=== PATIENT | male | born 1960 | race Caucasian/White ===

== ENCOUNTER 2019-04-18 10:15 | Outpatient (RCR) | payer OTHER, SELFPAY ==
--- NOTE | 2019-03-01 16:30 | PT.OIE ---
Current Diagnoses Unilateral primary osteoarthritis, right knee (03/01/19) Complex tear of medial meniscus, current injury, right knee, subsequent encounter (03/01/19) Visit Care Team Role Provider Type Robby Butt Attending Provider Non-Staff Specialty: Medical Address: [facility] [address], [place], [address] Email: Physical Therapy Initial Evaluation PT-OP-A Visit Information Start: 03/01/19 09:06 Freq: Status: Active Protocol: Document 03/01/19 14:09 NFW (Rec: 03/01/19 16:27 NFW [id number]) Out-Patient Physical Therapy Visit Information Visit Information Visit Type Initial Evaluation Visit Start Time 13:00 Visit Stop Time 13:45 Total Visit Minutes 45 Visit Number 1 Number of POLE SANDER OPERATOR Visits 0 Evaluation Information Evaluation Date 03/01/19 PT-OP-B Current Condition Start: 03/01/19 09:06 Freq: Status: Active Protocol: Document 03/01/19 14:09 NFW (Rec: 03/01/19 16:27 NFW [id number]) Current Condition History of Current Condition Onset Date June 2016 Current Complaints Pain med. jt line rt knee. Inability to walk right. Knee pops w/motion. History of Current Condition At time of injury patient working as a [employer]. Started noticing pain in right knee Jun 2016 but did not report or seek medical attention until November 2017. Over the past year his body weight has increased by 100 lbs; he was dx'd with CHF and hospitalized in ICU for 10 days in March 2018; dx'd w/ diabetes type II and COPD. Prior Treatments and Tests Arthoscopic medial menisectomy June 2018. Physical therapy post surgery in [facility]. Benefit of PT with improved strength right knee but pain persists. Seeing a interior design director for assist in weight control. Future Testing and Treatments Planned Recommendation by MD for trial Pool therapy. Treatment Goals Patient/Caregiver Goals Being able to walk normally without pain. Prior Functional Status Baseline Function- ADL's Modified Independent Baseline Function- Mobility Modified Independent Baseline Function- Work/School Worked fulltime as [employer]. Current Functional Impairments (Reported) Functional Limitations- Mobility/Gait Distance limited to one or two blocks. Pain noted throughout. Ambulates with moderate right medial list. Does not use any assistive devices. Difficulty in ascending and descending stairs. Functional Limitations- Work/School Currently unable to RTW due to limited walking/weight bearing tolerance. Personal Factors Other Personal Factors That May Effect Body weight has increased by Therapy/Recovery 100 lbs over the last year. PT-OP-C Subjective Start: 03/01/19 09:06 Freq: Status: Active Protocol: Document 03/01/19 14:09 NFW (Rec: 03/01/19 16:27 NFW [id number]) OP-PT Subjective Patient Comments Patient Comments Fairly constant pain medial joint line right knee, rated at a level of 6 on a maximal scale of 10. Knee pops with active movement with sharp twinge of pain. Would like to be able to walk normally. Patient Reported Progress Same Patient Questionnaires Lower Extremity Functional Scale LEFS Score 31 LEFS Impairment 20 to 39% Impaired (Score 48- 62) OP-PT Pain Assessment Pain Assessment Grid Paper Pain Assessment Grid Completed Yes Location Left Knee Intensity 6 Scale Used Numeric (1 - 10) Description Burning,Sharp Frequency Frequent Pain Aggravating Factors Changing Position,Activity, Exercise,Standing,Sitting, Walking,Stair Climbing,Bending Pain Alleviating Factors Changing Position,Rest Home Pain Medication Use Pain Medications Used Yes Pain Behaviors Pain Behaviors Facial Grimacing,Guarding PT-OP-F Manual Assessment Start: 03/01/19 09:06 Freq: Status: Active Protocol: Document 03/01/19 14:09 NFW (Rec: 03/01/19 16:27 NFW [id number]) Manual Assessments Joint Mobility Assessment Joint Mobility Assessment Mobility testing challenging medial structures painful. PT-OP-G Mobility & Gait Start: 03/01/19 09:06 Freq: Status: Active Protocol: Document 03/01/19 14:09 NFW (Rec: 03/01/19 16:27 NFW [id number]) OP Gait Assessment Gait Gait Assistance Required: Independent Assistive Devices Assistive Device None Gait Deviations General Gait Pattern Antalgic,Lateral Trunk Lean Factors Limiting Gait Function Factors Limiting Gait Function Abnormal Tonal Influences, Decreased Activity Tolerance, Decreased Strength,Pain,Poor Balance Comments Gait Comments Notable right medial list with weightbearing onto RLE. Has not used any assistive devices in the past. PT-OP-J Posture/Palpation/Skin Start: 03/01/19 09:06 Freq: Status: Active Protocol: Document 03/01/19 14:09 NFW (Rec: 03/01/19 16:27 NFW [id number]) Posture Evaluation Position Standing Evaluation View Anterior Weight Distribution Weight Shifted Left,Decreased Wt.Bear on (R) Hip Posture (R) Externally Rotated,(R) Abducted Ankle/Foot Posture (L) Pronated,(R) Calcaneal Eversion Foot Arch (R) Medium Arch,(L) Low Arch Palpation Assessment Location One Palpation Location Right knee, medial joint line Palpation Findings Tenderness Palpation Details No edema noted. Tenderness and pain along medial joint line right. Skin Assessment Other Assessments Skin Assessment Comments No discoloration noted right knee. PT-OP-K Range of Motion Start: 03/01/19 09:06 Freq: Status: Active Protocol: Document 03/01/19 14:09 NFW (Rec: 03/01/19 16:27 NFW [id number]) Knee Goniometric Range of Motion Knee Left Knee ROM WFL Yes Flexion Active (degrees) 125 Extension Active (degrees) 0 Right Patient Position Supine Flexion Active (degrees) 120 Extension Active (degrees) 0 PT-OP-L Special Tests Start: 03/01/19 09:06 Freq: Status: Active Protocol: Document 03/01/19 14:09 NFW (Rec: 03/01/19 16:27 NFW [id number]) Special Tests Knee Special Tests Anterior Draw Test Results Negative Luly Test Test Results Positive Comments Quite uncomfortable for patient. PT-OP-M Strength Start: 03/01/19 09:06 Freq: Status: Active Protocol: Document 03/01/19 14:09 NFW (Rec: 03/01/19 16:27 NFW [id number]) Knee Strength Knee Manual Muscle Testing Left Flexion (S2) 5 Normal Extension (L3) 5 Normal Right Reason Not Measured Behavior,Pain PT-OP-Q Treatments Start: 03/01/19 09:06 Freq: Status: Active Protocol: Document 03/01/19 14:09 NFW (Rec: 03/01/19 16:27 NFW [id number]) Therapeutic Exercises Supine Exercises 5 Supine Exercise Name Heels slides to full available ROM Side right Reps/Minutes 10 reps continuously Comments Emphasis on controlling of motion and the popping that occurs in his knee. 4 Supine Exercise Name Quad Sets Side right Reps/Minutes 10 - 10 sec holds 3 Supine Exercise Name TKE Side right Resistance none Equipment Used none Reps/Minutes 10 - 10 sec holds 2 Supine Exercise Name SLR Side right Resistance No Equipment Used None Reps/Minutes 10 - 10 sec holds 1 Supine Exercise Name Clam Side right Resistance none Equipment Used none Comments Instructed from previous PT in [place], mainly rechecked this exercise Gait Training Gait Activity 1 Description Gait training to decrease right medial list. Device Used cane and walking stick Treatment Focus To decrease right medial list, equalize step lengths Comments Initially patient resisted the use of walking aid. Noticed that he was able to walk more evenly with use of an aide. Preferred walking stick over cane. Plans to buy walking sticks. PT-OP-T Assessment and Plan Start: 03/01/19 09:06 Freq: Status: Active Protocol: Document 03/01/19 14:09 NFW (Rec: 03/01/19 16:27 NFW [id number]) Physical Therapy Assessment Rehab Potential Rehabilitation Potential Good Evaluation Complexity Number of Personal Factors/Comorbidities 1-2 Number of Body Systems Impaired 1-2 Clinical Presentation at Evaluation Stable Impairments Impairments Activity Tolerance,Balance, Coordination,Functional Activities,Functional Mobility ,Gait,Pain,ROM,Strength Other Impairments Patient has noticed with increase of physical activity that he becomes readily SOB. Also making attempts in decreasing body weight. Goals Three Impairment Walking tolerance Short Term Goal (STG) Increase ability to walk on the level with or without walking aid up to three blocks . STG Duration 04/01/19 Mcc Goal (LTG) Increase walking tolerance on the level to half mile with or without walking aids. LTG Duration 06/01/19 Two Impairment Antalgic Gait Short Term Goal (STG) Consistent use of walking aide to decrease right medial list . STG Duration 04/01/19 Mcc Goal (LTG) Ambulation on the level without medial list and without use of walking aid. LTG Duration 06/01/19 One Impairment Pain Short Term Goal (STG) Decrease intensity of pain to 4/10 from current 10/23. STG Duration 04/01/19 Mcc Goal (LTG) Decrease intensity of pain to 2/10 LTG Duration 05/01/10 Assessment Summary Assessment Patient presents with continual pain right knee after surgical intervention and OPPT. Has secondary LOM by a few degrees right knee. This has affected his ability to return to work or to perform light activities around the home. The pain has also affected his sleep. He has developed an antalgic gait pattern, muscle imbalances between right and left LE. Physical Therapy Plan Frequency and Duration Frequency of Treatment 2x/Week Duration of Treatment 3 months Plan of Care Start Date 03/01/19 Plan of Care End Date 06/01/19 Therapeutic Interventions Therapeutic Interventions Aquatic Therapy,Balance Training,Gait Training,Home Exercise Program,Therapeutic Exercises Next Visit Focus/Plan Next Note Type Treatment Note Next Visit Plan Aquatic Therapy
--- NOTE | 2019-03-14 16:34 | PT.OTN ---
Current Diagnoses Unilateral primary osteoarthritis, right knee (03/14/19) Complex tear of medial meniscus, current injury, right knee, subsequent encounter (03/14/19) Physical Therapy Treatment Note PT-OP-A Visit Information Start: 03/01/19 09:06 Freq: Status: Active Protocol: Document 03/14/19 10:15 LJ (Rec: 03/14/19 16:34 LJ [id number]) Out-Patient Physical Therapy Visit Information Visit Information Visit Type Aquatic Treatment Note Visit Start Time 10:15 Visit Stop Time 11:00 Total Visit Minutes 45 Visit Number 2 Number of INSTRUCTIONAL TECHNOLOGY SPECIALIST Visits 1 Evaluation Information Evaluation Date 03/01/19 PT-OP-B Current Condition Start: 03/01/19 09:06 Freq: Status: Active Protocol: Document 03/01/19 14:09 NFW (Rec: 03/01/19 16:27 NFW [id number]) Current Condition History of Current Condition Onset Date June 2016 Current Complaints Pain med. jt line rt knee. Inability to walk right. Knee pops w/motion. History of Current Condition At time of injury patient working as a [employer]. Started noticing pain in right knee Jun 2016 but did not report or seek medical attention until November 2017. Over the past year his body weight has increased by 100 lbs; he was dx'd with CHF and hospitalized in ICU for 10 days in March 2018; dx'd w/ diabetes type II and COPD. Prior Treatments and Tests Arthoscopic medial menisectomy June 2018. Physical therapy post surgery in [facility]. Benefit of PT with improved strength right knee but pain persists. Seeing a lead tinner for assist in weight control. Future Testing and Treatments Planned Recommendation by for trial Pool therapy. Treatment Goals Patient/Caregiver Goals Being able to walk normally without pain. Prior Functional Status Baseline Function- ADL's Modified Independent Baseline Function- Mobility Modified Independent Baseline Function- Work/School Worked fulltime as [employer]. Current Functional Impairments (Reported) Functional Limitations- Mobility/Gait Distance limited to one or two blocks. Pain noted throughout. Ambulates with moderate right medial list. Does not use any assistive devices. Difficulty in ascending and descending stairs. Functional Limitations- Work/School Currently unable to RTW due to limited walking/weight bearing tolerance. Personal Factors Other Personal Factors That May Effect Body weight has increased by Therapy/Recovery 100 lbs over the last year. PT-OP-C Subjective Start: 03/01/19 09:06 Freq: Status: Active Protocol: Document 03/14/19 10:15 LJ (Rec: 03/14/19 16:34 LJ [id number]) OP-PT Subjective Patient Comments Patient Comments Pt reports he is excited about aquatic therapy and is going to work hard to strengthen so that he can exercise on land and lose weight to hopefully return to work. Patient Questionnaires Lower Extremity Functional Scale LEFS Score 31 LEFS Impairment 20 to 39% Impaired (Score 48- 62) OP-PT Pain Assessment Pain Assessment Grid Paper Pain Assessment Grid Completed Yes Location Left Knee Intensity 6 Scale Used Numeric (1 - 10) Description Burning,Sharp Frequency Frequent Pain Aggravating Factors Changing Position,Activity, Exercise,Standing,Sitting, Walking,Stair Climbing,Bending Pain Alleviating Factors Changing Position,Rest Home Pain Medication Use Pain Medications Used Yes Pain Behaviors Pain Behaviors Facial Grimacing,Guarding PT-OP-F Manual Assessment Start: 03/01/19 09:06 Freq: Status: Active Protocol: Document 03/01/19 14:09 NFW (Rec: 03/01/19 16:27 NFW [id number]) Manual Assessments Joint Mobility Assessment Joint Mobility Assessment Mobility testing challenging medial structures painful. PT-OP-G Mobility & Gait Start: 03/01/19 09:06 Freq: Status: Active Protocol: Document 03/01/19 14:09 NFW (Rec: 03/01/19 16:27 NFW [id number]) OP Gait Assessment Gait Gait Assistance Required: Independent Assistive Devices Assistive Device None Gait Deviations General Gait Pattern Antalgic,Lateral Trunk Lean Factors Limiting Gait Function Factors Limiting Gait Function Abnormal Tonal Influences, Decreased Activity Tolerance, Decreased Strength,Pain,Poor Balance Comments Gait Comments Notable right medial list with weightbearing onto RLE. Has not used any assistive devices in the past. PT-OP-J Posture/Palpation/Skin Start: 03/01/19 09:06 Freq: Status: Active Protocol: Document 03/01/19 14:09 NFW (Rec: 03/01/19 16:27 NFW [id number]) Posture Evaluation Position Standing Evaluation View Anterior Weight Distribution Weight Shifted Left,Decreased Wt.Bear on (R) Hip Posture (R) Externally Rotated,(R) Abducted Ankle/Foot Posture (L) Pronated,(R) Calcaneal Eversion Foot Arch (R) Medium Arch,(L) Low Arch Palpation Assessment Location One Palpation Location Right knee, medial joint line Palpation Findings Tenderness Palpation Details No edema noted. Tenderness and pain along medial joint line right. Skin Assessment Other Assessments Skin Assessment Comments No discoloration noted right knee. PT-OP-K Range of Motion Start: 03/01/19 09:06 Freq: Status: Active Protocol: Document 03/01/19 14:09 NFW (Rec: 03/01/19 16:27 NFW [id number]) Knee Goniometric Range of Motion Knee Left Knee ROM WFL Yes Flexion Active (degrees) 125 Extension Active (degrees) 0 Right Patient Position Supine Flexion Active (degrees) 120 Extension Active (degrees) 0 PT-OP-L Special Tests Start: 03/01/19 09:06 Freq: Status: Active Protocol: Document 03/01/19 14:09 NFW (Rec: 03/01/19 16:27 NFW [id number]) Special Tests Knee Special Tests Anterior Draw Test Results Negative Luly Test Test Results Positive Comments Quite uncomfortable for patient. PT-OP-M Strength Start: 03/01/19 09:06 Freq: Status: Active Protocol: Document 03/01/19 14:09 NFW (Rec: 03/01/19 16:27 NFW [id number]) Knee Strength Knee Manual Muscle Testing Left Flexion (S2) 5 Normal Extension (L3) 5 Normal Right Reason Not Measured Behavior,Pain PT-OP-Q Treatments Start: 03/01/19 09:06 Freq: Status: Active Protocol: Document 03/01/19 14:09 NFW (Rec: 03/01/19 16:27 NFW [id number]) Therapeutic Exercises Supine Exercises 5 Supine Exercise Name Heels slides to full available ROM Side right Reps/Minutes 10 reps continuously Comments Emphasis on controlling of motion and the popping that occurs in his knee. 4 Supine Exercise Name Quad Sets Side right Reps/Minutes 10 - 10 sec holds 3 Supine Exercise Name TKE Side right Resistance none Equipment Used none Reps/Minutes 10 - 10 sec holds 2 Supine Exercise Name SLR Side right Resistance No Equipment Used None Reps/Minutes 10 - 10 sec holds 1 Supine Exercise Name Clam Side right Resistance none Equipment Used none Comments Instructed from previous PT in [place], mainly rechecked this exercise Gait Training Gait Activity 1 Description Gait training to decrease right medial list. Device Used cane and walking stick Treatment Focus To decrease right medial list, equalize step lengths Comments Initially patient resisted the use of walking aid. Noticed that he was able to walk more evenly with use of an aide. Preferred walking stick over cane. Plans to buy walking sticks. PT-OP-S Aquatic Treatment Start: 03/14/19 16:15 Freq: Status: Active Protocol: Document 03/14/19 10:15 FANNY (Rec: 03/14/19 16:34 [id number]) Aquatics Treatment Pool Entry/Exit Pool Entry/Exit Method Lift Assistance Standby Assistance,Verbal Cues Water Walking Marching Water Level Chest Level Level of Assistance Verbal Cues Touchet March Water Level Chest Level Level of Assistance Verbal Cues Sideways Water Level Chest Level Level of Assistance Verbal Cues Backwards Water Level Chest Level Level of Assistance Verbal Cues Forwards Water Level Chest Level Level of Assistance Verbal Cues Lower Extremity Exercises heel/toe raises Body Position Standing Water Level Chest Level Reps/Duration 2x10 ea bilat Sit kicks Body Position Sitting Water Level Neck Level Reps/Duration 2x10 bilat Comments braced against wall HS curls Body Position Standing Water Level Chest Level Reps/Duration 2x10 bilat Comments hh on wall; cues for postural alignment hip flex/ext, abd, add Body Position Standing Water Level Chest Level Reps/Duration 2x10 ea bilat Comments hh on wall; cues for postural alignment Lower Extremity Stretches gastroc/soleus Body Position Standing Water Level Waist Level Comments on step and bottom of pool piriformis Body Position Standing Water Level Chest Level Reps/Duration 2x45 bilat Comments both forms HS Body Position Standing Water Level Chest Level Equipment Large Noodle Reps/Duration 2x45 bilat Comments braced at wall hip flexors Body Position Standing Reps/Duration 2x45 Comments at wall Balance SLS Water Level Chest Level Reps/Duration 2x30 sec bilat Comments occasional hh on wall [place] Activities [place] Activities Bicycle Equipment none Duration 8 min Comments pt had difficulty with postural stability PT-OP-T Assessment and Plan Start: 03/01/19 09:06 Freq: Status: Active Protocol: Document 03/14/19 10:15 FANNY (Rec: 03/14/19 16:34 [id number]) Physical Therapy Assessment Rehab Potential Rehabilitation Potential Good Evaluation Complexity Number of Personal Factors/Comorbidities 1-2 Number of Body Systems Impaired 1-2 Clinical Presentation at Evaluation Stable Impairments Impairments Activity Tolerance,Balance, Coordination,Functional Activities,Functional Mobility ,Gait,Pain,ROM,Strength Other Impairments Patient has noticed with increase of physical activity that he becomes readily SOB. Also making attempts in decreasing body weight. Goals Three Impairment Walking tolerance Short Term Goal (STG) Increase ability to walk on the level with or without walking aid up to three blocks . STG Duration 04/01/19 Aquaculture Director Goal (LTG) Increase walking tolerance on the level to half mile with or without walking aids. LTG Duration 06/01/19 Two Impairment Antalgic Gait Short Term Goal (STG) Consistent use of walking aide to decrease right medial list . STG Duration 04/01/19 Aquaculture Director Goal (LTG) Ambulation on the level without medial list and without use of walking aid. LTG Duration 06/01/19 One Impairment Pain Short Term Goal (STG) Decrease intensity of pain to 4/10 from current 10/23. STG Duration 04/01/19 Longterm Goal (LTG) Decrease intensity of pain to 2/10 LTG Duration 05/01/10 Assessment Summary Assessment Pt tolerated exercises well and had mostly good posture and body mechanics with cueing . He reported that there was no instability or popping of his knee but that it felt slightly less stable, but pain free in deep water. Pt had difficulty stabilizing in deep water with his legs being buoyant. Also became winded and SOB in deep water after 8 min. Physical Therapy Plan Frequency and Duration Frequency of Treatment 2x/Week Duration of Treatment 3 months Plan of Care Start Date 03/01/19 Plan of Care End Date 06/01/19 Therapeutic Interventions Therapeutic Interventions Aquatic Therapy,Balance Training,Gait Training,Home Exercise Program,Therapeutic Exercises Next Visit Focus/Plan Next Note Type Treatment Note Next Visit Plan Treat per POC focusing on strengthening LEs and core muscles to improve knee stability and ability to walk without medial list and increase distance. Add weights to LEs in deep water.
--- NOTE | 2019-03-19 11:00 | PT.OTN ---
Current Diagnoses Unilateral primary osteoarthritis, right knee (03/14/19) Complex tear of medial meniscus, current injury, right knee, subsequent encounter (03/14/19) Physical Therapy Treatment Note PT-OP-A Visit Information Start: 03/01/19 09:06 Freq: Status: Active Protocol: Document 03/19/19 10:15 CLB (Rec: 03/19/19 14:20 CLB [id number]) Out-Patient Physical Therapy Visit Information Visit Information Visit Type Aquatic Treatment Note Visit Start Time 10:15 Visit Stop Time 11:00 Total Visit Minutes 45 Visit Number 3 Number of CLEARANCE CUTTER Visits 2 PT-OP-B Current Condition Start: 03/01/19 09:06 Freq: Status: Active Protocol: Document 03/01/19 14:09 NFW (Rec: 03/01/19 16:27 NFW [id number]) Current Condition History of Current Condition Onset Date June 2016 Current Complaints Pain med. jt line rt knee. Inability to walk right. Knee pops w/motion. History of Current Condition At time of injury patient working as a [employer]. Started noticing pain in right knee Jun 2016 but did not report or seek medical attention until November 2017. Over the past year his body weight has increased by 100 lbs; he was dx'd with CHF and hospitalized in ICU for 10 days in March 2018; dx'd w/ diabetes type II and COPD. Prior Treatments and Tests Arthoscopic medial menisectomy June 2018. [facility]. Benefit of PT with improved strength right knee but pain persists. Seeing a optical mechanic apprentice for assist in weight control. Future Testing and Treatments Planned Recommendation by MD for trial Pool therapy. Treatment Goals Patient/Caregiver Goals Being able to walk normally without pain. Prior Functional Status Baseline Function- ADL's Modified Independent Baseline Function- Mobility Modified Independent Baseline Function- Work/School Worked fulltime as [employer]. Current Functional Impairments (Reported) Functional Limitations- Mobility/Gait Distance limited to one or two blocks. Pain noted throughout. Ambulates with moderate right medial list. Does not use any assistive devices. Difficulty in ascending and descending stairs. Functional Limitations- Work/School Currently unable to RTW due to limited walking/weight bearing tolerance. Personal Factors Other Personal Factors That May Effect Body weight has increased by Therapy/Recovery 100 lbs over the last year. PT-OP-C Subjective Start: 03/01/19 09:06 Freq: Status: Active Protocol: Document 03/19/19 10:15 CLB (Rec: 03/19/19 14:20 CLB [id number]) OP-PT Subjective Patient Comments Patient Comments Pt reports feeling like he got a good workout in pool and he can do more without pain. PT-OP-F Manual Assessment Start: 03/01/19 09:06 Freq: Status: Active Protocol: Document 03/01/19 14:09 NFW (Rec: 03/01/19 16:27 NFW [id number]) Manual Assessments Joint Mobility Assessment Joint Mobility Assessment Mobility testing challenging medial structures painful. PT-OP-G Mobility & Gait Start: 03/01/19 09:06 Freq: Status: Active Protocol: Document 03/01/19 14:09 NFW (Rec: 03/01/19 16:27 NFW [id number]) OP Gait Assessment Gait Gait Assistance Required: Independent Assistive Devices Assistive Device None Gait Deviations General Gait Pattern Antalgic,Lateral Trunk Lean Factors Limiting Gait Function Factors Limiting Gait Function Abnormal Tonal Influences, Decreased Activity Tolerance, Decreased Strength,Pain,Poor Balance Comments Gait Comments Notable right medial list with weightbearing onto RLE. Has not used any assistive devices in the past. PT-OP-J Posture/Palpation/Skin Start: 03/01/19 09:06 Freq: Status: Active Protocol: Document 03/01/19 14:09 NFW (Rec: 03/01/19 16:27 NFW [id number]) Posture Evaluation Position Standing Evaluation View Anterior Weight Distribution Weight Shifted Left,Decreased Wt.Bear on (R) Hip Posture (R) Externally Rotated,(R) Abducted Ankle/Foot Posture (L) Pronated,(R) Calcaneal Eversion Foot Arch (R) Medium Arch,(L) Low Arch Palpation Assessment Location One Palpation Location Right knee, medial joint line Palpation Findings Tenderness Palpation Details No edema noted. Tenderness and pain along medial joint line right. Skin Assessment Other Assessments Skin Assessment Comments No discoloration noted right knee. PT-OP-K Range of Motion Start: 03/01/19 09:06 Freq: Status: Active Protocol: Document 03/01/19 14:09 NFW (Rec: 03/01/19 16:27 NFW [id number]) Knee Goniometric Range of Motion Knee Left Knee ROM WFL Yes Flexion Active (degrees) 125 Extension Active (degrees) 0 Right Patient Position Supine Flexion Active (degrees) 120 Extension Active (degrees) 0 PT-OP-L Special Tests Start: 03/01/19 09:06 Freq: Status: Active Protocol: Document 03/01/19 14:09 NFW (Rec: 03/01/19 16:27 NFW [id number]) Special Tests Knee Special Tests Anterior Draw Test Results Negative Luly Test Test Results Positive Comments Quite uncomfortable for patient. PT-OP-M Strength Start: 03/01/19 09:06 Freq: Status: Active Protocol: Document 03/01/19 14:09 NFW (Rec: 03/01/19 16:27 NFW [id number]) Knee Strength Knee Manual Muscle Testing Left Flexion (S2) 5 Normal Extension (L3) 5 Normal Right Reason Not Measured Behavior,Pain PT-OP-Q Treatments Start: 03/01/19 09:06 Freq: Status: Active Protocol: Document 03/01/19 14:09 NFW (Rec: 03/01/19 16:27 NFW [id number]) Therapeutic Exercises Supine Exercises 5 Supine Exercise Name Heels slides to full available ROM Side right Reps/Minutes 10 reps continuously Comments Emphasis on controlling of motion and the popping that occurs in his knee. 4 Supine Exercise Name Quad Sets Side right Reps/Minutes 10 - 10 sec holds 3 Supine Exercise Name TKE Side right Resistance none Equipment Used none Reps/Minutes 10 - 10 sec holds 2 Supine Exercise Name SLR Side right Resistance No Equipment Used None Reps/Minutes 10 - 10 sec holds 1 Supine Exercise Name Clam Side right Resistance none Equipment Used none Comments Instructed from previous PT in , mainly rechecked this exercise Gait Training Gait Activity 1 Description Gait training to decrease right medial list. Device Used cane and walking stick Treatment Focus To decrease right medial list, equalize step lengths Comments Initially patient resisted the use of walking aid. Noticed that he was able to walk more evenly with use of an aide. Preferred walking stick over cane. Plans to buy walking sticks. PT-OP-S Aquatic Treatment Start: 03/14/19 16:15 Freq: Status: Active Protocol: Document 03/19/19 10:15 CLB (Rec: 03/19/19 14:20 CLB [id number]) Aquatics Treatment Pool Entry/Exit Pool Entry/Exit Method Lift Assistance Standby Assistance,Verbal Cues Water Walking Marching Water Level Chest Level Level of Assistance Verbal Cues [place] March Water Level Chest Level Level of Assistance Verbal Cues Sideways Water Level Chest Level Level of Assistance Verbal Cues Backwards Water Level Chest Level Level of Assistance Verbal Cues Forwards Water Level Chest Level Level of Assistance Verbal Cues Comments cues for posture and equal stride length. Lower Extremity Exercises heel/toe raises Body Position Standing Water Level Chest Level Reps/Duration 2x10 ea bilat Sit kicks Body Position Sitting Water Level Neck Level Reps/Duration 2x10 bilat Comments braced against wall HS curls Body Position Standing Water Level Chest Level Reps/Duration 2x10 bilat Comments hh on wall; cues for postural alignment hip flex/ext, abd, add Body Position Standing Water Level Chest Level Reps/Duration 2x10 ea bilat Comments hh on wall; cues for postural alignment Lower Extremity Stretches gastroc/soleus Body Position Standing Water Level Waist Level Comments on step and bottom of pool piriformis Body Position Standing Water Level Chest Level Reps/Duration 2x45 bilat Comments both forms HS Body Position Standing Water Level Chest Level Equipment Large Noodle Reps/Duration 2x45 bilat Comments braced at wall hip flexors Body Position Standing Reps/Duration 2x45 Comments at wall Balance SLS Water Level Chest Level Reps/Duration 2x30 sec bilat Comments occasional hh on wall Josephine Activities Josephine Activities Bicycle Equipment none Duration 8 min Comments pt had difficulty with postural stability wts increased SOB and pt was uable to move through water. Took wts off. PT-OP-T Assessment and Plan Start: 03/01/19 09:06 Freq: Status: Active Protocol: Document 03/19/19 10:15 CLB (Rec: 03/19/19 14:20 CLB [email or web address]) Physical Therapy Assessment Goals Three Impairment Walking tolerance Short Term Goal (STG) Increase ability to walk on the level with or without walking aid up to three blocks . STG Duration 04/01/19 Senior Care Goal (LTG) Increase walking tolerance on the level to half mile with or without walking aids. LTG Duration 06/01/19 Two Impairment Antalgic Gait Short Term Goal (STG) Consistent use of walking aide to decrease right medial list . STG Duration 04/01/19 Human Resources Leader Goal (LTG) Ambulation on the level without medial list and without use of walking aid. LTG Duration 06/01/19 One Impairment Pain Short Term Goal (STG) Decrease intensity of pain to 4/10 from current 10/23. STG Duration 04/01/19 Senior Care Goal (LTG) Decrease intensity of pain to 2/10 LTG Duration 05/01/10 Assessment Summary Assessment Pt continues to tolerate aquatic therapy well. Pt required 2 rest breaks during deep water activities and wts were removed due to increased SOB with increased effort. Physical Therapy Plan Frequency and Duration Frequency of Treatment 2x/Week Duration of Treatment 3 months Plan of Care Start Date 03/01/19 Plan of Care End Date 06/01/19 Next Visit Focus/Plan Next Note Type Treatment Note Next Visit Plan Treat per POC focusing on strengthening LEs and core muscles to improve knee stability and ability to walk without medial list and increase distance.
--- NOTE | 2019-03-21 16:39 | PT.OTN ---
Current Diagnoses Unilateral primary osteoarthritis, right knee (03/19/19) Complex tear of medial meniscus, current injury, right knee, subsequent encounter (03/19/19) Physical Therapy Treatment Note PT-OP-A Visit Information Start: 03/01/19 09:06 Freq: Status: Active Protocol: Document 03/21/19 11:00 LJ (Rec: 03/21/19 16:39 LJ [id number]) Out-Patient Physical Therapy Visit Information Visit Information Visit Type Aquatic Treatment Note Visit Start Time 11:00 Visit Stop Time 11:45 Total Visit Minutes 45 Visit Number 4 Number of CP BLEACHER OPERATOR Visits 3 PT-OP-B Current Condition Start: 03/01/19 09:06 Freq: Status: Active Protocol: Document 03/01/19 14:09 NFW (Rec: 03/01/19 16:27 NFW [id number]) Current Condition History of Current Condition Onset Date June 2016 Current Complaints Pain med. jt line rt knee. Inability to walk right. Knee pops w/motion. History of Current Condition At time of injury patient working as a [employer]. Started noticing pain in right knee Jun 2016 but did not report or seek medical attention until November 2017. Over the past year his body weight has increased by 100 lbs; he was dx'd with CHF and hospitalized in ICU for 10 days in March 2018; dx'd w/ diabetes type II and COPD. Prior Treatments and Tests Arthoscopic medial menisectomy June 2018. Physical therapy post surgery in [facility]. Benefit of PT with improved strength right knee but pain persists. Seeing a floor plan adjuster for assist in weight control. Future Testing and Treatments Planned Recommendation by MD for trial Pool therapy. Treatment Goals Patient/Caregiver Goals Being able to walk normally without pain. Prior Functional Status Baseline Function- ADL's Modified Independent Baseline Function- Mobility Modified Independent Baseline Function- Work/School Worked fulltime as [employer]. Current Functional Impairments (Reported) Functional Limitations- Mobility/Gait Distance limited to one or two blocks. Pain noted throughout. Ambulates with moderate right medial list. Does not use any assistive devices. Difficulty in ascending and descending stairs. Functional Limitations- Work/School Currently unable to RTW due to limited walking/weight bearing tolerance. Personal Factors Other Personal Factors That May Effect Body weight has increased by Therapy/Recovery 100 lbs over the last year. PT-OP-C Subjective Start: 03/01/19 09:06 Freq: Status: Active Protocol: Document 03/21/19 11:00 LJ (Rec: 03/21/19 16:39 LJ [id number]) OP-PT Subjective Patient Comments Patient Comments Pt enjoys pool therapy and feels it is the best way to improve his strength and overall health OP-PT Pain Assessment Pain Assessment Grid Paper Pain Assessment Grid Completed Yes Location Left Knee Intensity 6 Scale Used Numeric (1 - 10) Description Burning,Sharp Frequency Frequent Pain Aggravating Factors Changing Position,Activity, Exercise,Standing,Sitting, Walking,Stair Climbing,Bending Pain Alleviating Factors Changing Position,Rest Home Pain Medication Use Pain Medications Used Yes Pain Behaviors Pain Behaviors Facial Grimacing,Guarding PT-OP-F Manual Assessment Start: 03/01/19 09:06 Freq: Status: Active Protocol: Document 03/01/19 14:09 NFW (Rec: 03/01/19 16:27 NFW [id number]) Manual Assessments Joint Mobility Assessment Joint Mobility Assessment Mobility testing challenging medial structures painful. PT-OP-G Mobility & Gait Start: 03/01/19 09:06 Freq: Status: Active Protocol: Document 03/01/19 14:09 NFW (Rec: 03/01/19 16:27 NFW [id number]) OP Gait Assessment Gait Gait Assistance Required: Independent Assistive Devices Assistive Device None Gait Deviations General Gait Pattern Antalgic,Lateral Trunk Lean Factors Limiting Gait Function Factors Limiting Gait Function Abnormal Tonal Influences, Decreased Activity Tolerance, Decreased Strength,Pain,Poor Balance Comments Gait Comments Notable right medial list with weightbearing onto RLE. Has not used any assistive devices in the past. PT-OP-J Posture/Palpation/Skin Start: 03/01/19 09:06 Freq: Status: Active Protocol: Document 03/01/19 14:09 NFW (Rec: 03/01/19 16:27 NFW [id number]) Posture Evaluation Position Standing Evaluation View Anterior Weight Distribution Weight Shifted Left,Decreased Wt.Bear on (R) Hip Posture (R) Externally Rotated,(R) Abducted Ankle/Foot Posture (L) Pronated,(R) Calcaneal Eversion Foot Arch (R) Medium Arch,(L) Low Arch Palpation Assessment Location One Palpation Location Right knee, medial joint line Palpation Findings Tenderness Palpation Details No edema noted. Tenderness and pain along medial joint line right. Skin Assessment Other Assessments Skin Assessment Comments No discoloration noted right knee. PT-OP-K Range of Motion Start: 03/01/19 09:06 Freq: Status: Active Protocol: Document 03/01/19 14:09 NFW (Rec: 03/01/19 16:27 NFW [id number]) Knee Goniometric Range of Motion Knee Left Knee ROM WFL Yes Flexion Active (degrees) 125 Extension Active (degrees) 0 Right Patient Position Supine Flexion Active (degrees) 120 Extension Active (degrees) 0 PT-OP-L Special Tests Start: 03/01/19 09:06 Freq: Status: Active Protocol: Document 03/01/19 14:09 NFW (Rec: 03/01/19 16:27 NFW [id number]) Special Tests Knee Special Tests Anterior Draw Test Results Negative Luly Test Test Results Positive Comments Quite uncomfortable for patient. PT-OP-M Strength Start: 03/01/19 09:06 Freq: Status: Active Protocol: Document 03/01/19 14:09 NFW (Rec: 03/01/19 16:27 NFW [id number]) Knee Strength Knee Manual Muscle Testing Left Flexion (S2) 5 Normal Extension (L3) 5 Normal Right Reason Not Measured Behavior,Pain PT-OP-Q Treatments Start: 03/01/19 09:06 Freq: Status: Active Protocol: Document 03/01/19 14:09 NFW (Rec: 03/01/19 16:27 NFW [id number]) Therapeutic Exercises Supine Exercises 5 Supine Exercise Name Heels slides to full available ROM Side right Reps/Minutes 10 reps continuously Comments Emphasis on controlling of motion and the popping that occurs in his knee. 4 Supine Exercise Name Quad Sets Side right Reps/Minutes 10 - 10 sec holds 3 Supine Exercise Name TKE Side right Resistance none Equipment Used none Reps/Minutes 10 - 10 sec holds 2 Supine Exercise Name SLR Side right Resistance No Equipment Used None Reps/Minutes 10 - 10 sec holds 1 Supine Exercise Name Clam Side right Resistance none Equipment Used none Comments Instructed from previous PT in , mainly rechecked this exercise Gait Training Gait Activity 1 Description Gait training to decrease right medial list. Device Used cane and walking stick Treatment Focus To decrease right medial list, equalize step lengths Comments Initially patient resisted the use of walking aid. Noticed that he was able to walk more evenly with use of an aide. Preferred walking stick over cane. Plans to buy walking sticks. PT-OP-S Aquatic Treatment Start: 03/14/19 16:15 Freq: Status: Active Protocol: Document 03/21/19 11:00 LJ (Rec: 03/21/19 16:39 LJ [id number]) Aquatics Treatment Pool Entry/Exit Pool Entry/Exit Method Stairs Water Walking Marching Water Level Chest Level Walking Equipment Ankle Floats Level of Assistance Verbal Cues [place] March Water Level Chest Level Walking Equipment Ankle Floats Level of Assistance Verbal Cues Sideways Water Level Chest Level Walking Equipment Ankle Floats Level of Assistance Verbal Cues Backwards Water Level Chest Level Walking Equipment Ankle Floats Level of Assistance Verbal Cues [place] Water Level Chest Level Walking Equipment Ankle Floats Level of Assistance Verbal Cues Lower Extremity Exercises squats Details on stairs w/UE assist Water Level Waist Level Reps/Duration 15 Comments cues for muscle sequence activation hip CW/CCW Body Position Standing Water Level Waist Level Equipment Ankle Floats Reps/Duration 15x2 Comments all directions heel/toe raises Body Position Standing Water Level Chest Level Reps/Duration 2x10 ea bilat Sit kicks Body Position Sitting Water Level Neck Level Equipment Ankle Floats Reps/Duration 2x10 bilat Comments braced against wall HS curls Body Position Standing Water Level Chest Level Equipment Ankle Floats Reps/Duration 2x10 bilat Comments hh on wall; cues for postural alignment hip flex/ext, abd, add Body Position Standing Water Level Chest Level Equipment Ankle Floats Reps/Duration 2x10 ea bilat Lower Extremity Stretches gastroc/soleus Body Position Standing Water Level Waist Level Comments on step and bottom of pool piriformis Body Position Standing Water Level Chest Level Reps/Duration 2x45 bilat Comments both forms HS Body Position Standing Water Level Chest Level Equipment Large Noodle Reps/Duration 2x45 bilat Comments braced at wall hip flexors Body Position Standing Reps/Duration 2x45 Comments at wall Elsie Activities Elsie Activities Bicycle,Cross Country,Hip Abduction/Adduction,Sit Kicks Other Activities [id number] Equipment none Duration 12 Comments pt improved with stability PT-OP-T Assessment and Plan Start: 03/01/19 09:06 Freq: Status: Active Protocol: Document 03/21/19 11:00 FANNY (Rec: 03/21/19 16:39 LJ [id number]) Physical Therapy Assessment Rehab Potential Rehabilitation Potential Good Evaluation Complexity Number of Personal Factors/Comorbidities 1-2 Number of Body Systems Impaired 1-2 Clinical Presentation at Evaluation Stable Impairments Impairments Activity Tolerance,Balance, Coordination,Functional Activities,Functional Mobility ,Gait,Pain,ROM,Strength Other Impairments Patient has noticed with increase of physical activity that he becomes readily SOB. Also making attempts in decreasing body weight. Goals Three Impairment Walking tolerance Short Term Goal (STG) Increase ability to walk on the level with or without walking aid up to three blocks . STG Duration 04/01/19 [facility] Goal (LTG) Increase walking tolerance on the level to half mile with or without walking aids. LTG Duration 06/01/19 Two Impairment Antalgic Gait Short Term Goal (STG) Consistent use of walking aide to decrease right medial list . STG Duration 04/01/19 [facility] Goal (LTG) Ambulation on the level without medial list and without use of walking aid. LTG Duration 06/01/19 One Impairment Pain Short Term Goal (STG) Decrease intensity of pain to 4/10 from current 10/23. STG Duration 04/01/19 [facility] Goal (LTG) Decrease intensity of pain to 2/10 LTG Duration 05/01/10 Assessment Summary Assessment Pt had difficulty with deep water stabilization initially but with cueing was able to correct. Pendulum exercise too difficult at this time. Required 1 rest break during deep water exercises. Tolerates standing and walking exercises well. Physical Therapy Plan Frequency and Duration Frequency of Treatment 2x/Week Duration of Treatment 3 months Plan of Care Start Date 03/01/19 Plan of Care End Date 06/01/19 Therapeutic Interventions Therapeutic Interventions Aquatic Therapy,Balance Training,Gait Training,Home Exercise Program,Therapeutic Exercises Next Visit Focus/Plan Next Note Type Treatment Note Next Visit Plan Treat per POC focusing on strengthening LEs and core muscles to improve knee stability and ability to walk without medial list and increase distance.
--- NOTE | 2019-03-26 11:00 | PT.OTN ---
Current Diagnoses Unilateral primary osteoarthritis, right knee (03/21/19) Complex tear of medial meniscus, current injury, right knee, subsequent encounter (03/21/19) Physical Therapy Treatment Note PT-OP-A Visit Information Start: 03/01/19 09:06 Freq: Status: Active Protocol: Document 03/26/19 10:15 CLB (Rec: 03/26/19 13:56 CLB [id number]) Out-Patient Physical Therapy Visit Information Visit Information Visit Type Aquatic Treatment Note Visit Start Time 10:15 Visit Stop Time 11:00 Total Visit Minutes 45 Visit Number 5 Number of FLAKER OPERATOR Visits 4 PT-OP-B Current Condition Start: 03/01/19 09:06 Freq: Status: Active Protocol: Document 03/01/19 14:09 NFW (Rec: 03/01/19 16:27 NFW [id number]) Current Condition History of Current Condition Onset Date June 2016 Current Complaints Pain med. jt line rt knee. Inability to walk right. Knee pops w/motion. History of Current Condition At time of injury patient working as a [employer]. Started noticing pain in right knee Jun 2016 but did not report or seek medical attention until November 2017. Over the past year his body weight has increased by 100 lbs; he was dx'd with CHF and hospitalized in ICU for 10 days in March 2018; dx'd w/ diabetes type II and COPD. Prior Treatments and Tests Arthoscopic medial menisectomy June 2018. Physical therapy post surgery in [facility]. Benefit of PT with improved strength right knee but pain persists. Seeing a hypertrichologist for assist in weight control. Future Testing and Treatments Planned Recommendation by MD for trial Pool therapy. Treatment Goals Patient/Caregiver Goals Being able to walk normally without pain. Prior Functional Status Baseline Function- ADL's Modified Independent Baseline Function- Mobility Modified Independent Baseline Function- Work/School Worked fulltime as [employer]. Current Functional Impairments (Reported) Functional Limitations- Mobility/Gait Distance limited to one or two blocks. Pain noted throughout. Ambulates with moderate right medial list. Does not use any assistive devices. Difficulty in ascending and descending stairs. Functional Limitations- Work/School Currently unable to RTW due to limited walking/weight bearing tolerance. Personal Factors Other Personal Factors That May Effect Body weight has increased by Therapy/Recovery 100 lbs over the last year. PT-OP-C Subjective Start: 03/01/19 09:06 Freq: Status: Active Protocol: Document 03/26/19 10:15 CLB (Rec: 03/26/19 13:56 CLB [id number]) OP-PT Subjective Patient Comments Patient Comments Pt continues to enjoy aquatic therapy stating it feels good to be able to move w/o pain. PT-OP-F Manual Assessment Start: 03/01/19 09:06 Freq: Status: Active Protocol: Document 03/01/19 14:09 NFW (Rec: 03/01/19 16:27 NFW [id number]) Manual Assessments Joint Mobility Assessment Joint Mobility Assessment Mobility testing challenging medial structures painful. PT-OP-G Mobility & Gait Start: 03/01/19 09:06 Freq: Status: Active Protocol: Document 03/01/19 14:09 NFW (Rec: 03/01/19 16:27 NFW [id number]) OP Gait Assessment Gait Gait Assistance Required: Independent Assistive Devices Assistive Device None Gait Deviations General Gait Pattern Antalgic,Lateral Trunk Lean Factors Limiting Gait Function Factors Limiting Gait Function Abnormal Tonal Influences, Decreased Activity Tolerance, Decreased Strength,Pain,Poor Balance Comments Gait Comments Notable right medial list with weightbearing onto RLE. Has not used any assistive devices in the past. PT-OP-J Posture/Palpation/Skin Start: 03/01/19 09:06 Freq: Status: Active Protocol: Document 03/01/19 14:09 NFW (Rec: 03/01/19 16:27 NFW [id number]) Posture Evaluation Position Standing Evaluation View Anterior Weight Distribution Weight Shifted Left,Decreased Wt.Bear on (R) Hip Posture (R) Externally Rotated,(R) Abducted Ankle/Foot Posture (L) Pronated,(R) Calcaneal Eversion Foot Arch (R) Medium Arch,(L) Low Arch Palpation Assessment Location One Palpation Location Right knee, medial joint line Palpation Findings Tenderness Palpation Details No edema noted. Tenderness and pain along medial joint line right. Skin Assessment Other Assessments Skin Assessment Comments No discoloration noted right knee. PT-OP-K Range of Motion Start: 03/01/19 09:06 Freq: Status: Active Protocol: Document 03/01/19 14:09 NFW (Rec: 03/01/19 16:27 NFW [id number]) Knee Goniometric Range of Motion Knee Left Knee ROM WFL Yes Flexion Active (degrees) 125 Extension Active (degrees) 0 Right Patient Position Supine Flexion Active (degrees) 120 Extension Active (degrees) 0 PT-OP-L Special Tests Start: 03/01/19 09:06 Freq: Status: Active Protocol: Document 03/01/19 14:09 NFW (Rec: 03/01/19 16:27 NFW [id number]) Special Tests Knee Special Tests Anterior Draw Test Results Negative Luly Test Test Results Positive Comments Quite uncomfortable for patient. PT-OP-M Strength Start: 03/01/19 09:06 Freq: Status: Active Protocol: Document 03/01/19 14:09 NFW (Rec: 03/01/19 16:27 NFW [id number]) Knee Strength Knee Manual Muscle Testing Left Flexion (S2) 5 Normal Extension (L3) 5 Normal Right Reason Not Measured Behavior,Pain PT-OP-Q Treatments Start: 03/01/19 09:06 Freq: Status: Active Protocol: Document 03/01/19 14:09 NFW (Rec: 03/01/19 16:27 NFW [id number]) Therapeutic Exercises Supine Exercises 5 Supine Exercise Name Heels slides to full available ROM Side right Reps/Minutes 10 reps continuously Comments Emphasis on controlling of motion and the popping that occurs in his knee. 4 Supine Exercise Name Quad Sets Side right Reps/Minutes 10 - 10 sec holds 3 Supine Exercise Name TKE Side right Resistance none Equipment Used none Reps/Minutes 10 - 10 sec holds 2 Supine Exercise Name SLR Side right Resistance No Equipment Used None Reps/Minutes 10 - 10 sec holds 1 Supine Exercise Name Clam Side right Resistance none Equipment Used none Comments Instructed from previous PT in , mainly rechecked this exercise Gait Training Gait Activity 1 Description Gait training to decrease right medial list. Device Used cane and walking stick Treatment Focus To decrease right medial list, equalize step lengths Comments Initially patient resisted the use of walking aid. Noticed that he was able to walk more evenly with use of an aide. Preferred walking stick over cane. Plans to buy walking sticks. PT-OP-S Aquatic Treatment Start: 03/14/19 16:15 Freq: Status: Active Protocol: Document 03/26/19 10:15 CLB (Rec: 03/26/19 13:56 CLB [id number]) Aquatics Treatment Pool Entry/Exit Pool Entry/Exit Method Stairs Water Walking Marching Water Level Chest Level Walking Equipment Ankle Floats Level of Assistance Verbal Cues [place] March Water Level Chest Level Walking Equipment Ankle Floats Level of Assistance Verbal Cues Sideways Water Level Chest Level Walking Equipment Ankle Floats Level of Assistance Verbal Cues Backwards Water Level Chest Level Walking Equipment Ankle Floats Level of Assistance Verbal Cues Forwards Water Level Chest Level Walking Equipment Ankle Floats Level of Assistance Verbal Cues Lower Extremity Exercises bike Body Position Sitting Water Level Waist Level Equipment shoes Reps/Duration 10 minutes Comments tolerated well w/o SOB squats Details on stairs w/UE assist Water Level Waist Level Reps/Duration 15 Comments cues for muscle sequence activation hip CW/CCW Body Position Standing Water Level Waist Level Equipment Ankle Floats Reps/Duration 15x2 Comments all directions heel/toe raises Body Position Standing Water Level Chest Level Reps/Duration 2x10 ea bilat Sit kicks Body Position Sitting Water Level Neck Level Equipment Ankle Floats Reps/Duration 2x10 bilat Comments braced against wall HS curls Body Position Standing Water Level Chest Level Equipment Ankle Floats Reps/Duration 2x10 bilat Comments hh on wall; cues for postural alignment hip flex/ext, abd, add Body Position Standing Water Level Chest Level Equipment Ankle Floats Reps/Duration 2x10 ea bilat Lower Extremity Stretches gastroc/soleus Body Position Standing Water Level Waist Level Comments on step and bottom of pool piriformis Body Position Standing Water Level Chest Level Reps/Duration 2x45 bilat Comments both forms HS Body Position Standing Water Level Chest Level Equipment Large Noodle Reps/Duration 2x45 bilat Comments braced at wall hip flexors Body Position Standing Reps/Duration 2x45 Comments at wall Balance SLS Water Level Chest Level Reps/Duration 2x30 sec bilat Comments occasional hh on wall PT-OP-T Assessment and Plan Start: 03/01/19 09:06 Freq: Status: Active Protocol: Document 03/26/19 10:15 CLB (Rec: 03/26/19 13:56 CLB [id number]) Physical Therapy Assessment Goals Three Impairment Walking tolerance Short Term Goal (STG) Increase ability to walk on the level with or without walking aid up to three blocks . STG Duration 04/01/19 Half-Way Goal (LTG) Increase walking tolerance on the level to half mile with or without walking aids. LTG Duration 06/01/19 Two Impairment Antalgic Gait Short Term Goal (STG) Consistent use of walking aide to decrease right medial list . STG Duration 04/01/19 Marine Pipefitter Goal (LTG) Ambulation on the level without medial list and without use of walking aid. LTG Duration 06/01/19 One Impairment Pain Short Term Goal (STG) Decrease intensity of pain to 4/10 from current 10/23. STG Duration 04/01/19 Marine Pipefitter Goal (LTG) Decrease intensity of pain to 2/10 LTG Duration 05/01/10 Assessment Summary Assessment Pt tolerated aquatic bike for 10 minutes without SOB. Pt continues to be able to perform aquatic ther ex without increase in pain of RLE. Physical Therapy Plan Frequency and Duration Frequency of Treatment 2x/Week Duration of Treatment 3 months Plan of Care Start Date 03/01/19 Plan of Care End Date 06/01/19 Next Visit Focus/Plan Next Visit Plan Treat per POC focusing on strengthening LEs and core muscles to improve knee stability and ability to walk without medial list and increase distance.
--- NOTE | 2019-03-28 17:08 | PT.OTN ---
Current Diagnoses Unilateral primary osteoarthritis, right knee (03/28/19) Complex tear of medial meniscus, current injury, right knee, subsequent encounter (03/28/19) Physical Therapy Treatment Note PT-OP-A Visit Information Start: 03/01/19 09:06 Freq: Status: Active Protocol: Document 03/28/19 11:00 LJ (Rec: 03/28/19 17:08 LJ [id number]) Out-Patient Physical Therapy Visit Information Visit Information Visit Type Aquatic Treatment Note Visit Start Time 11:00 Visit Stop Time 11:45 Total Visit Minutes 45 Visit Number 6 Number of HOOKER OFF Visits 5 PT-OP-B Current Condition Start: 03/01/19 09:06 Freq: Status: Active Protocol: Document 03/01/19 14:09 NFW (Rec: 03/01/19 16:27 NFW [id number]) Current Condition History of Current Condition Onset Date June 2016 Current Complaints Pain med. jt line rt knee. Inability to walk right. Knee pops w/motion. History of Current Condition At time of injury patient working as a [employer]. Started noticing pain in right knee Jun 2016 but did not report or seek medical attention until November 2017. Over the past year his body weight has increased by 100 lbs; he was dx'd with CHF and hospitalized in ICU for 10 days in March 2018; dx'd w/ diabetes type II and COPD. Prior Treatments and Tests Arthoscopic medial menisectomy June 2018. Physical therapy post surgery in [facility]. Benefit of PT with improved strength right knee but pain persists. Seeing a mail carrier for assist in weight control. Future Testing and Treatments Planned Recommendation by MD for trial Pool therapy. Treatment Goals Patient/Caregiver Goals Being able to walk normally without pain. Prior Functional Status Baseline Function- ADL's Modified Independent Baseline Function- Mobility Modified Independent Baseline Function- Work/School Worked fulltime as [employer]. Current Functional Impairments (Reported) Functional Limitations- Mobility/Gait Distance limited to one or two blocks. Pain noted throughout. Ambulates with moderate right medial list. Does not use any assistive devices. Difficulty in ascending and descending stairs. Functional Limitations- Work/School Currently unable to RTW due to limited walking/weight bearing tolerance. Personal Factors Other Personal Factors That May Effect Body weight has increased by Therapy/Recovery 100 lbs over the last year. PT-OP-C Subjective Start: 03/01/19 09:06 Freq: Status: Active Protocol: Document 03/28/19 11:00 LJ (Rec: 03/28/19 17:08 LJ [id number]) OP-PT Subjective Patient Comments Patient Comments Pt has had no pain after any of his aquatic visits. OP-PT Pain Assessment Location Left Knee Intensity 6 Scale Used Numeric (1 - 10) Description Burning,Sharp Frequency Frequent Pain Aggravating Factors Changing Position,Activity, Exercise,Standing,Sitting, Walking,Stair Climbing,Bending Pain Alleviating Factors Changing Position,Rest Home Pain Medication Use Pain Medications Used Yes Pain Behaviors Pain Behaviors Facial Grimacing,Guarding PT-OP-F Manual Assessment Start: 03/01/19 09:06 Freq: Status: Active Protocol: Document 03/01/19 14:09 NFW (Rec: 03/01/19 16:27 NFW [id number]) Manual Assessments Joint Mobility Assessment Joint Mobility Assessment Mobility testing challenging medial structures painful. PT-OP-G Mobility & Gait Start: 03/01/19 09:06 Freq: Status: Active Protocol: Document 03/01/19 14:09 NFW (Rec: 03/01/19 16:27 NFW [id number]) OP Gait Assessment Gait Gait Assistance Required: Independent Assistive Devices Assistive Device None Gait Deviations General Gait Pattern Antalgic,Lateral Trunk Lean Factors Limiting Gait Function Factors Limiting Gait Function Abnormal Tonal Influences, Decreased Activity Tolerance, Decreased Strength,Pain,Poor Balance Comments Gait Comments Notable right medial list with weightbearing onto RLE. Has not used any assistive devices in the past. PT-OP-J Posture/Palpation/Skin Start: 03/01/19 09:06 Freq: Status: Active Protocol: Document 03/01/19 14:09 NFW (Rec: 03/01/19 16:27 NFW [id number]) Posture Evaluation Position Standing Evaluation View Anterior Weight Distribution Weight Shifted Left,Decreased Wt.Bear on (R) Hip Posture (R) Externally Rotated,(R) Abducted Ankle/Foot Posture (L) Pronated,(R) Calcaneal Eversion Foot Arch (R) Medium Arch,(L) Low Arch Palpation Assessment Location One Palpation Location Right knee, medial joint line Palpation Findings Tenderness Palpation Details No edema noted. Tenderness and pain along medial joint line right. Skin Assessment Other Assessments Skin Assessment Comments No discoloration noted right knee. PT-OP-K Range of Motion Start: 03/01/19 09:06 Freq: Status: Active Protocol: Document 03/01/19 14:09 NFW (Rec: 03/01/19 16:27 NFW [id number]) Knee Goniometric Range of Motion Knee Left Knee ROM WFL Yes Flexion Active (degrees) 125 Extension Active (degrees) 0 Right Patient Position Supine Flexion Active (degrees) 120 Extension Active (degrees) 0 PT-OP-L Special Tests Start: 03/01/19 09:06 Freq: Status: Active Protocol: Document 03/01/19 14:09 NFW (Rec: 03/01/19 16:27 NFW [id number]) Special Tests Knee Special Tests Anterior Draw Test Results Negative Luly Test Test Results Positive Comments Quite uncomfortable for patient. PT-OP-M Strength Start: 03/01/19 09:06 Freq: Status: Active Protocol: Document 03/01/19 14:09 NFW (Rec: 03/01/19 16:27 NFW [id number]) Knee Strength Knee Manual Muscle Testing Left Flexion (S2) 5 Normal Extension (L3) 5 Normal Right Reason Not Measured Behavior,Pain PT-OP-Q Treatments Start: 03/01/19 09:06 Freq: Status: Active Protocol: Document 03/01/19 14:09 NFW (Rec: 03/01/19 16:27 NFW [id number]) Therapeutic Exercises Supine Exercises 5 Supine Exercise Name Heels slides to full available ROM Side right Reps/Minutes 10 reps continuously Comments Emphasis on controlling of motion and the popping that occurs in his knee. 4 Supine Exercise Name Quad Sets Side right Reps/Minutes 10 - 10 sec holds 3 Supine Exercise Name TKE Side right Resistance none Equipment Used none Reps/Minutes 10 - 10 sec holds 2 Supine Exercise Name SLR Side right Resistance No Equipment Used None Reps/Minutes 10 - 10 sec holds 1 Supine Exercise Name Clam Side right Resistance none Equipment Used none Comments Instructed from previous PT in , mainly rechecked this exercise Gait Training Gait Activity 1 Description Gait training to decrease right medial list. Device Used cane and walking stick Treatment Focus To decrease right medial list, equalize step lengths Comments Initially patient resisted the use of walking aid. Noticed that he was able to walk more evenly with use of an aide. Preferred walking stick over cane. Plans to buy walking sticks. PT-OP-S Aquatic Treatment Start: 03/14/19 16:15 Freq: Status: Active Protocol: Document 03/28/19 11:00 FANNY (Rec: 03/28/19 17:08 [id number]) Aquatics Treatment Pool Entry/Exit Pool Entry/Exit Method Stairs Water Walking Marching Water Level Chest Level Walking Equipment Ankle Weight- 2.5# [place] March Water Level Chest Level Walking Equipment Ankle Weight- 2.5# Sideways Water Level Chest Level Walking Equipment Ankle Weight- 2.5# Backwards Water Level Chest Level Walking Equipment Ankle Weight- 2.5# Forwards Water Level Chest Level Walking Equipment Ankle Weight- 2.5# Lower Extremity Exercises bike Body Position Sitting Water Level Waist Level Equipment shoes Reps/Duration 10 minutes Comments tolerated well w/o SOB hip CW/CCW Body Position Standing Water Level Waist Level Equipment Ankle Weight- 2.5# Reps/Duration 15x2 Comments all directions; no hh on wall heel/toe raises Body Position Standing Water Level Chest Level Reps/Duration 2x10 ea bilat Sit kicks Body Position Sitting Water Level Neck Level Equipment Ankle Weight- 2.5# Reps/Duration 2x15 bilat Comments braced against wall HS curls Body Position Standing Water Level Chest Level Equipment Ankle Weight- 2.5# Reps/Duration 2x10 bilat Comments cues for postural alignment hip flex/ext, abd, add Body Position Standing Water Level Chest Level Equipment Ankle Weight- 2.5# Reps/Duration 2x15 ea bilat Lower Extremity Stretches right ITB Body Position Standing Water Level Waist Level Equipment Ankle Weight- 2.5# Reps/Duration 45 sec quads Body Position Standing Water Level Waist Level Equipment Large Noodle gastroc/soleus Body Position Standing Water Level Waist Level Equipment Large Noodle HS Body Position Standing Water Level Chest Level Equipment Large Noodle Reps/Duration 2x45 bilat Comments braced at wall hip flexors Body Position Standing Reps/Duration 2x45 Comments at wall Manual Techniques Aquatic Massage ITB ball rolling on wall with tennis ball PT-OP-T Assessment and Plan Start: 03/01/19 09:06 Freq: Status: Active Protocol: Document 03/28/19 11:00 FANNY (Rec: 03/28/19 17:08 [id number]) Physical Therapy Assessment Rehab Potential Rehabilitation Potential Good Evaluation Complexity Number of Personal Factors/Comorbidities 1-2 Number of Body Systems Impaired 1-2 Clinical Presentation at Evaluation Stable Impairments Impairments Activity Tolerance,Balance, Coordination,Functional Activities,Functional Mobility ,Gait,Pain,ROM,Strength Other Impairments Patient has noticed with increase of physical activity that he becomes readily SOB. Also making attempts in decreasing body weight. Goals Three Impairment Walking tolerance Short Term Goal (STG) Increase ability to walk on the level with or without walking aid up to three blocks . STG Duration 04/01/19 Fpc Goal (LTG) Increase walking tolerance on the level to half mile with or without walking aids. LTG Duration 06/01/19 Two Impairment Antalgic Gait Short Term Goal (STG) Consistent use of walking aide to decrease right medial list . STG Duration 04/01/19 Fpc Goal (LTG) Ambulation on the level without medial list and without use of walking aid. LTG Duration 06/01/19 One Impairment Pain Short Term Goal (STG) Decrease intensity of pain to 4/10 from current 10/23. STG Duration 04/01/19 Corporate Financial Analyst Goal (LTG) Decrease intensity of pain to 2/10 LTG Duration 05/01/10 Assessment Summary Assessment Pt experienced pain with ITB rolling with tennis ball. Was advised to reduce pressure to where he could tolerate it. He increased his effort with added weights on his ankles without increased SOB or pain. Balance is improving without hand hold on wall. Physical Therapy Plan Frequency and Duration Frequency of Treatment 2x/Week Duration of Treatment 3 months Plan of Care Start Date 03/01/19 Plan of Care End Date 06/01/19 Therapeutic Interventions Therapeutic Interventions Aquatic Therapy,Balance Training,Gait Training,Home Exercise Program,Therapeutic Exercises Next Visit Focus/Plan Next Visit Plan Treat per POC focusing on strengthening LEs and core muscles to improve knee stability and ability to walk without medial list and increase distance. Incorporate stretch cord core training.
--- NOTE | 2019-04-02 15:26 | PT.OTN ---
Current Diagnoses Unilateral primary osteoarthritis, right knee (04/02/19) Complex tear of medial meniscus, current injury, right knee, subsequent encounter (04/02/19) Physical Therapy Treatment Note PT-OP-A Visit Information Start: 03/01/19 09:06 Freq: Status: Active Protocol: Document 04/02/19 11:45 LJ (Rec: 04/02/19 15:26 LJ [email or web address]) Out-Patient Physical Therapy Visit Information Visit Information Visit Type Aquatic Treatment Note Visit Start Time 11:45 Visit Stop Time 12:30 Total Visit Minutes 45 Visit Number 7 Number of PHARMACY COORDINATOR Visits 6 PT-OP-B Current Condition Start: 03/01/19 09:06 Freq: Status: Active Protocol: Document 03/01/19 14:09 NFW (Rec: 03/01/19 16:27 NFW [id number]) Current Condition History of Current Condition Onset Date June 2016 Current Complaints Pain med. jt line rt knee. Inability to walk right. Knee pops w/motion. History of Current Condition At time of injury patient working as a [employer]. Started noticing pain in right knee Jun 2016 but did not report or seek medical attention until November 2017. Over the past year his body weight has increased by 100 lbs; he was dx'd with CHF and hospitalized in ICU for 10 days in March 2018; dx'd w/ diabetes type II and COPD. Prior Treatments and Tests Arthoscopic medial menisectomy June 2018. Physical therapy post surgery in [facility]. Benefit of PT with improved strength right knee but pain persists. Seeing a community organization aide for assist in weight control. Future Testing and Treatments Planned Recommendation by MD for trial Pool therapy. Treatment Goals Patient/Caregiver Goals Being able to walk normally without pain. Prior Functional Status Baseline Function- ADL's Modified Independent Baseline Function- Mobility Modified Independent Baseline Function- Work/School Worked fulltime as [employer]. Current Functional Impairments (Reported) Functional Limitations- Mobility/Gait Distance limited to one or two blocks. Pain noted throughout. Ambulates with moderate right medial list. Does not use any assistive devices. Difficulty in ascending and descending stairs. Functional Limitations- Work/School Currently unable to RTW due to limited walking/weight bearing tolerance. Personal Factors Other Personal Factors That May Effect Body weight has increased by Therapy/Recovery 100 lbs over the last year. PT-OP-C Subjective Start: 03/01/19 09:06 Freq: Status: Active Protocol: Document 04/02/19 11:45 LJ (Rec: 04/02/19 15:26 LJ [id number]) OP-PT Subjective Patient Comments Patient Comments Pt continues to enjoy pool therapy and states it is helping PT-OP-F Manual Assessment Start: 03/01/19 09:06 Freq: Status: Active Protocol: Document 03/01/19 14:09 NFW (Rec: 03/01/19 16:27 NFW [id number]) Manual Assessments Joint Mobility Assessment Joint Mobility Assessment Mobility testing challenging medial structures painful. PT-OP-G Mobility & Gait Start: 03/01/19 09:06 Freq: Status: Active Protocol: Document 03/01/19 14:09 NFW (Rec: 03/01/19 16:27 NFW [id number]) OP Gait Assessment Gait Gait Assistance Required: Independent Assistive Devices Assistive Device None Gait Deviations General Gait Pattern Antalgic,Lateral Trunk Lean Factors Limiting Gait Function Factors Limiting Gait Function Abnormal Tonal Influences, Decreased Activity Tolerance, Decreased Strength,Pain,Poor Balance Comments Gait Comments Notable right medial list with weightbearing onto RLE. Has not used any assistive devices in the past. PT-OP-J Posture/Palpation/Skin Start: 03/01/19 09:06 Freq: Status: Active Protocol: Document 03/01/19 14:09 NFW (Rec: 03/01/19 16:27 NFW [id number]) Posture Evaluation Position Standing Evaluation View Anterior Weight Distribution Weight Shifted Left,Decreased Wt.Bear on (R) Hip Posture (R) Externally Rotated,(R) Abducted Ankle/Foot Posture (L) Pronated,(R) Calcaneal Eversion Foot Arch (R) Medium Arch,(L) Low Arch Palpation Assessment Location One Palpation Location Right knee, medial joint line Palpation Findings Tenderness Palpation Details No edema noted. Tenderness and pain along medial joint line right. Skin Assessment Other Assessments Skin Assessment Comments No discoloration noted right knee. PT-OP-K Range of Motion Start: 03/01/19 09:06 Freq: Status: Active Protocol: Document 03/01/19 14:09 NFW (Rec: 03/01/19 16:27 NFW [id number]) Knee Goniometric Range of Motion Knee Left Knee ROM WFL Yes Flexion Active (degrees) 125 Extension Active (degrees) 0 Right Patient Position Supine Flexion Active (degrees) 120 Extension Active (degrees) 0 PT-OP-L Special Tests Start: 03/01/19 09:06 Freq: Status: Active Protocol: Document 03/01/19 14:09 NFW (Rec: 03/01/19 16:27 NFW [id number]) Special Tests Knee Special Tests Anterior Draw Test Results Negative Luly Test Test Results Positive Comments Quite uncomfortable for patient. PT-OP-M Strength Start: 03/01/19 09:06 Freq: Status: Active Protocol: Document 03/01/19 14:09 NFW (Rec: 03/01/19 16:27 NFW [id number]) Knee Strength Knee Manual Muscle Testing Left Flexion (S2) 5 Normal Extension (L3) 5 Normal Right Reason Not Measured Behavior,Pain PT-OP-Q Treatments Start: 03/01/19 09:06 Freq: Status: Active Protocol: Document 03/01/19 14:09 NFW (Rec: 03/01/19 16:27 NFW [id number]) Therapeutic Exercises Supine Exercises 5 Supine Exercise Name Heels slides to full available ROM Side right Reps/Minutes 10 reps continuously Comments Emphasis on controlling of motion and the popping that occurs in his knee. 4 Supine Exercise Name Quad Sets Side right Reps/Minutes 10 - 10 sec holds 3 Supine Exercise Name TKE Side right Resistance none Equipment Used none Reps/Minutes 10 - 10 sec holds 2 Supine Exercise Name SLR Side right Resistance No Equipment Used None Reps/Minutes 10 - 10 sec holds 1 Supine Exercise Name Clam Side right Resistance none Equipment Used none Comments Instructed from previous PT in , mainly rechecked this exercise Gait Training Gait Activity 1 Description Gait training to decrease right medial list. Device Used cane and walking stick Treatment Focus To decrease right medial list, equalize step lengths Comments Initially patient resisted the use of walking aid. Noticed that he was able to walk more evenly with use of an aide. Preferred walking stick over cane. Plans to buy walking sticks. PT-OP-S Aquatic Treatment Start: 03/14/19 16:15 Freq: Status: Active Protocol: Document 04/02/19 11:45 LJ (Rec: 04/02/19 15:26 LJ [email or web address]) Aquatics Treatment Pool Entry/Exit Pool Entry/Exit Method Stairs Water Walking Marching Water Level Chest Level Walking Equipment Ankle Weight- 5.0# [place] March Water Level Chest Level Walking Equipment Ankle Weight- 5.0# Sideways Water Level Chest Level Walking Equipment Ankle Weight- 5.0# Forwards Water Level Chest Level Walking Equipment Ankle Weight- 5.0# Lower Extremity Exercises ski-jacks Body Position Standing Water Level Chest Level Equipment Ankle Weight- 5.0# Reps/Duration 2x10 Comments sliding feet on floor of pool side kicks, back kicks Body Position Standing Water Level Chest Level Equipment Ankle Weight- 5.0# Reps/Duration 2x10 Comments increased effort bike Body Position Sitting Water Level Waist Level Equipment shoes Reps/Duration 10 minutes Comments tolerated well w/o SOB squats Details on stairs w/UE assist Water Level Waist Level Reps/Duration 15 Comments cues for muscle sequence activation hip CW/CCW Body Position Standing Water Level Waist Level Equipment Ankle Weight- 2.5# Reps/Duration 15x2 Comments all directions; no hh on wall; increased effort heel/toe raises Body Position Standing Water Level Chest Level Reps/Duration 2x10 ea bilat HS curls Body Position Standing Water Level Chest Level Equipment Ankle Weight- 5.0# Reps/Duration 2x10 bilat hip flex/ext, abd, add Body Position Standing Water Level Chest Level Equipment Ankle Weight- 5.0# Reps/Duration 2x15 ea bilat Lower Extremity Stretches right ITB Body Position Standing Water Level Waist Level Equipment Ankle Weight- 2.5# Reps/Duration 45 sec quads Body Position Standing Water Level Waist Level Equipment Large Noodle gastroc/soleus Body Position Standing Water Level Waist Level Equipment Large Noodle piriformis Body Position Standing Water Level Chest Level Reps/Duration 2x45 bilat Comments both forms HS Body Position Standing Water Level Chest Level Equipment Large Noodle Reps/Duration 2x45 bilat Comments braced at wall hip flexors Body Position Standing Reps/Duration 2x45 Comments at wall Spinal Exercises squats with stretch cords Body Position Standing Reps/Duration 2x10 Comments stabilizing resisted walking w/stretch cords Body Position Standing Water Level Chest Level Reps/Duration 2x10 Comments // to pool wall each direction stretch cord rotations Body Position Standing Water Level Chest Level Reps/Duration 2x10 each direction PT-OP-T Assessment and Plan Start: 03/01/19 09:06 Freq: Status: Active Protocol: Document 11/18/19 11:45 FANNY (Rec: 04/02/19 15:26 LJ [email or web address]) Physical Therapy Assessment Rehab Potential Rehabilitation Potential Good Evaluation Complexity Number of Personal Factors/Comorbidities 1-2 Number of Body Systems Impaired 1-2 Clinical Presentation at Evaluation Stable Impairments Impairments Activity Tolerance,Balance, Coordination,Functional Activities,Functional Mobility ,Gait,Pain,ROM,Strength Other Impairments Patient has noticed with increase of physical activity that he becomes readily SOB. Also making attempts in decreasing body weight. Goals Three Impairment Walking tolerance Short Term Goal (STG) Increase ability to walk on the level with or without walking aid up to three blocks . STG Duration 04/01/19 Yardage Control Operator Goal (LTG) Increase walking tolerance on the level to half mile with or without walking aids. LTG Duration 06/01/19 Two Impairment Antalgic Gait Short Term Goal (STG) Consistent use of walking aide to decrease right medial list . STG Duration 04/01/19 Mcc Goal (LTG) Ambulation on the level without medial list and without use of walking aid. LTG Duration 06/01/19 One Impairment Pain Short Term Goal (STG) Decrease intensity of pain to 4/10 from current 10/23. STG Duration 04/01/19 Yardage Control Operator Goal (LTG) Decrease intensity of pain to 2/10 LTG Duration 05/01/10 Assessment Summary Assessment Pt improving with increased difficulty of exercises and added weight. Reports no increase in pain. Physical Therapy Plan Frequency and Duration Frequency of Treatment 2x/Week Duration of Treatment 3 months Plan of Care Start Date 03/01/19 Plan of Care End Date 06/01/19 Therapeutic Interventions Therapeutic Interventions Aquatic Therapy,Balance Training,Gait Training,Home Exercise Program,Therapeutic Exercises Next Visit Focus/Plan Next Visit Plan Treat per POC focusing on strengthening LEs and core muscles to improve knee stability and ability to walk without medial list and increase distance. Incorporate stretch cord core training.
--- NOTE | 2019-04-09 14:11 | PT.OTN ---
Current Diagnoses Unilateral primary osteoarthritis, right knee (04/02/19) Complex tear of medial meniscus, current injury, right knee, subsequent encounter (04/02/19) Physical Therapy Treatment Note PT-OP-A Visit Information Start: 03/01/19 09:06 Freq: Status: Active Protocol: Document 04/09/19 14:03 SAK (Rec: 04/09/19 14:11 SAK [id number]) Out-Patient Physical Therapy Visit Information Visit Information Visit Type Aquatic Treatment Note Visit Start Time 10:15 Visit Stop Time 11:00 Total Visit Minutes 45 Visit Number 8 Number of CONTINUOUS IMPROVEMENT COORDINATOR Visits 0 PT-OP-B Current Condition Start: 03/01/19 09:06 Freq: Status: Active Protocol: Document 03/01/19 14:09 NFW (Rec: 03/01/19 16:27 NFW [id number]) Current Condition History of Current Condition Onset Date June 2016 Current Complaints Pain med. jt line rt knee. Inability to walk right. Knee pops w/motion. History of Current Condition At time of injury patient working as a [employer]. Started noticing pain in right knee Jun 2016 but did not report or seek medical attention until November 2017. Over the past year his body weight has increased by 100 lbs; he was dx'd with CHF and hospitalized in ICU for 10 days in March 2018; dx'd w/ diabetes type II and COPD. Prior Treatments and Tests Arthoscopic medial menisectomy June 2018. Physical therapy post surgery in [facility]. Benefit of PT with improved strength right knee but pain persists. Seeing a clinical research scientist for assist in weight control. Future Testing and Treatments Planned Recommendation by MD for trial Pool therapy. Treatment Goals Patient/Caregiver Goals Being able to walk normally without pain. Prior Functional Status Baseline Function- ADL's Modified Independent Baseline Function- Mobility Modified Independent Baseline Function- Work/School Worked fulltime as [employer]. Current Functional Impairments (Reported) Functional Limitations- Mobility/Gait Distance limited to one or two blocks. Pain noted throughout. Ambulates with moderate right medial list. Does not use any assistive devices. Difficulty in ascending and descending stairs. Functional Limitations- Work/School Currently unable to RTW due to limited walking/weight bearing tolerance. Personal Factors Other Personal Factors That May Effect Body weight has increased by Therapy/Recovery 100 lbs over the last year. PT-OP-C Subjective Start: 03/01/19 09:06 Freq: Status: Active Protocol: Document 04/09/19 14:03 SAK (Rec: 04/09/19 14:11 SAK [id number]) OP-PT Subjective Patient Comments Patient Comments Feels aquatic therapy more helpful than land-based PT but some pain persists. Sees surgeon 04/19. Wants to continue aquatic therapy. PT-OP-F Manual Assessment Start: 03/01/19 09:06 Freq: Status: Active Protocol: Document 03/01/19 14:09 NFW (Rec: 03/01/19 16:27 NFW [id number]) Manual Assessments Joint Mobility Assessment Joint Mobility Assessment Mobility testing challenging medial structures painful. PT-OP-G Mobility & Gait Start: 03/01/19 09:06 Freq: Status: Active Protocol: Document 03/01/19 14:09 NFW (Rec: 03/01/19 16:27 NFW [id number]) OP Gait Assessment Gait Gait Assistance Required: Independent Assistive Devices Assistive Device None Gait Deviations General Gait Pattern Antalgic,Lateral Trunk Lean Factors Limiting Gait Function Factors Limiting Gait Function Abnormal Tonal Influences, Decreased Activity Tolerance, Decreased Strength,Pain,Poor Balance Comments Gait Comments Notable right medial list with weightbearing onto RLE. Has not used any assistive devices in the past. PT-OP-J Posture/Palpation/Skin Start: 03/01/19 09:06 Freq: Status: Active Protocol: Document 03/01/19 14:09 NFW (Rec: 03/01/19 16:27 NFW [id number]) Posture Evaluation Position Standing Evaluation View Anterior Weight Distribution Weight Shifted Left,Decreased Wt.Bear on (R) Hip Posture (R) Externally Rotated,(R) Abducted Ankle/Foot Posture (L) Pronated,(R) Calcaneal Eversion Foot Arch (R) Medium Arch,(L) Low Arch Palpation Assessment Location One Palpation Location Right knee, medial joint line Palpation Findings Tenderness Palpation Details No edema noted. Tenderness and pain along medial joint line right. Skin Assessment Other Assessments Skin Assessment Comments No discoloration noted right knee. PT-OP-K Range of Motion Start: 03/01/19 09:06 Freq: Status: Active Protocol: Document 03/01/19 14:09 NFW (Rec: 03/01/19 16:27 NFW [id number]) Knee Goniometric Range of Motion Knee Left Knee ROM WFL Yes Flexion Active (degrees) 125 Extension Active (degrees) 0 Right Patient Position Supine Flexion Active (degrees) 120 Extension Active (degrees) 0 PT-OP-L Special Tests Start: 03/01/19 09:06 Freq: Status: Active Protocol: Document 03/01/19 14:09 NFW (Rec: 03/01/19 16:27 NFW [id number]) Special Tests Knee Special Tests Anterior Draw Test Results Negative Luly Test Test Results Positive Comments Quite uncomfortable for patient. PT-OP-M Strength Start: 03/01/19 09:06 Freq: Status: Active Protocol: Document 03/01/19 14:09 NFW (Rec: 03/01/19 16:27 NFW [id number]) Knee Strength Knee Manual Muscle Testing Left Flexion (S2) 5 Normal Extension (L3) 5 Normal Right Reason Not Measured Behavior,Pain PT-OP-Q Treatments Start: 03/01/19 09:06 Freq: Status: Active Protocol: Document 03/01/19 14:09 NFW (Rec: 03/01/19 16:27 NFW [id number]) Therapeutic Exercises Supine Exercises 5 Supine Exercise Name Heels slides to full available ROM Side right Reps/Minutes 10 reps continuously Comments Emphasis on controlling of motion and the popping that occurs in his knee. 4 Supine Exercise Name Quad Sets Side right Reps/Minutes 10 - 10 sec holds 3 Supine Exercise Name TKE Side right Resistance none Equipment Used none Reps/Minutes 10 - 10 sec holds 2 Supine Exercise Name SLR Side right Resistance No Equipment Used None Reps/Minutes 10 - 10 sec holds 1 Supine Exercise Name Clam Side right Resistance none Equipment Used none Comments Instructed from previous PT in , mainly rechecked this exercise Gait Training Gait Activity 1 Description Gait training to decrease right medial list. Device Used cane and walking stick Treatment Focus To decrease right medial list, equalize step lengths Comments Initially patient resisted the use of walking aid. Noticed that he was able to walk more evenly with use of an aide. Preferred walking stick over cane. Plans to buy walking sticks. PT-OP-S Aquatic Treatment Start: 03/14/19 16:15 Freq: Status: Active Protocol: Document 04/09/19 14:03 SAK (Rec: 04/09/19 14:11 SAK [id number]) Aquatics Treatment Pool Entry/Exit Pool Entry/Exit Method Stairs Assistance Independent Water Walking Marching Water Level Chest Level Walking Equipment Ankle Weight- 5.0# [place] March Water Level Chest Level Walking Equipment Ankle Weight- 5.0# Sideways Water Level Chest Level Walking Equipment Ankle Weight- 5.0# Forwards Water Level Chest Level Walking Equipment Ankle Weight- 5.0# Lower Extremity Exercises ski-jacks Body Position Standing Water Level Chest Level Equipment Ankle Weight- 5.0# Reps/Duration 2x10 Comments sliding feet on floor of pool side kicks, back kicks Body Position Standing Water Level Chest Level Equipment Ankle Weight- 5.0# Reps/Duration 2x10 Comments increased effort bike Body Position Sitting Water Level Waist Level Equipment shoes Reps/Duration 15 minutes Comments tolerated well w/ mild SOB squats Details on stairs w/UE assist Water Level Waist Level Reps/Duration 15 Comments cues for muscle sequence activation hip CW/CCW Body Position Standing Water Level Waist Level Equipment Ankle Weight- 2.5# Reps/Duration 15x2 Comments all directions; no hh on wall; increased effort heel/toe raises Body Position Standing Water Level Chest Level Reps/Duration 2x10 ea bilat HS curls Body Position Standing Water Level Chest Level Equipment Ankle Weight- 5.0# Reps/Duration 2x10 bilat hip flex/ext, abd, add Body Position Standing Water Level Chest Level Equipment Ankle Weight- 5.0# Reps/Duration 2x15 ea bilat Lower Extremity Stretches right ITB Body Position Standing Water Level Waist Level Equipment Ankle Weight- 2.5# Reps/Duration 45 sec quads Body Position Standing Water Level Waist Level Equipment Large Noodle gastroc/soleus Body Position Standing Water Level Waist Level Equipment Large Noodle piriformis Body Position Standing Water Level Chest Level Reps/Duration 2x45 bilat Comments both forms HS Body Position Standing Water Level Chest Level Equipment Large Noodle Reps/Duration 2x45 bilat Comments braced at wall hip flexors Body Position Standing Reps/Duration 2x45 Comments at wall Spinal Exercises squats with stretch cords Body Position Standing Reps/Duration 2x10 Comments stabilizing PT-OP-T Assessment and Plan Start: 03/01/19 09:06 Freq: Status: Active Protocol: Document 04/09/19 14:03 [facility] (Rec: 04/09/19 14:11 SAK [id number]) Physical Therapy Assessment Rehab Potential Rehabilitation Potential Good Evaluation Complexity Number of Personal Factors/Comorbidities 1-2 Number of Body Systems Impaired 1-2 Clinical Presentation at Evaluation Stable Impairments Impairments Activity Tolerance,Balance, Coordination,Functional Activities,Functional Mobility ,Gait,Pain,ROM,Strength Other Impairments Patient has noticed with increase of physical activity that he becomes readily SOB. Also making attempts in decreasing body weight. Goals Three Impairment Walking tolerance Short Term Goal (STG) Increase ability to walk on the level with or without walking aid up to three blocks . STG Duration 04/01/19 Plater Hot Dip Goal (LTG) Increase walking tolerance on the level to half mile with or without walking aids. LTG Duration 06/01/19 Two Impairment Antalgic Gait Short Term Goal (STG) Consistent use of walking aide to decrease right medial list . STG Duration 04/01/19 Prison Goal (LTG) Ambulation on the level without medial list and without use of walking aid. LTG Duration 06/01/19 One Impairment Pain Short Term Goal (STG) Decrease intensity of pain to 4/10 from current 10/23. STG Duration 04/01/19 Plater Hot Dip Goal (LTG) Decrease intensity of pain to 2/10 LTG Duration 05/01/10 Assessment Summary Assessment Patient had good tolerance for aquatic therapy session with mild SOB toward end of ex bike , denied increase in pain. Physical Therapy Plan Frequency and Duration Frequency of Treatment 2x/Week Duration of Treatment 3 months Plan of Care Start Date 03/01/19 Plan of Care End Date 06/01/19 Therapeutic Interventions Therapeutic Interventions Aquatic Therapy,Balance Training,Gait Training,Home Exercise Program,Therapeutic Exercises Next Visit Focus/Plan Next Visit Plan Continue to progress aquatic exercise program for strengthening, stabilization, flexibility, and gait.
--- NOTE | 2019-04-11 14:38 | PT.OTN ---
Current Diagnoses Unilateral primary osteoarthritis, right knee (04/11/19) Complex tear of medial meniscus, current injury, right knee, subsequent encounter (04/11/19) Physical Therapy Treatment Note PT-OP-A Visit Information Start: 03/01/19 09:06 Freq: Status: Active Protocol: Document 04/11/19 14:31 SAK (Rec: 04/11/19 14:37 SAK [id number]) Out-Patient Physical Therapy Visit Information Visit Information Visit Type Aquatic Treatment Note Visit Start Time 10:15 Visit Stop Time 09:00 Total Visit Minutes 45 Visit Number 9 Number of SOUND DESIGNER Visits 0 PT-OP-B Current Condition Start: 03/01/19 09:06 Freq: Status: Active Protocol: Document 03/01/19 14:09 NFW (Rec: 03/01/19 16:27 NFW [id number]) Current Condition History of Current Condition Onset Date June 2016 Current Complaints Pain med. jt line rt knee. Inability to walk right. Knee pops w/motion. History of Current Condition At time of injury patient working as a [employer]. Started noticing pain in right knee Jun 2016 but did not report or seek medical attention until November 2017. Over the past year his body weight has increased by 100 lbs; he was dx'd with CHF and hospitalized in ICU for 10 days in March 2018; dx'd w/ diabetes type II and COPD. Prior Treatments and Tests Arthoscopic medial menisectomy June 2018. Physical therapy post surgery in [facility]. Benefit of PT with improved strength right knee but pain persists. Seeing a mac developer for assist in weight control. Future Testing and Treatments Planned Recommendation by MD for trial Pool therapy. Treatment Goals Patient/Caregiver Goals Being able to walk normally without pain. Prior Functional Status Baseline Function- ADL's Modified Independent Baseline Function- Mobility Modified Independent Baseline Function- Work/School Worked fulltime as [employer]. Current Functional Impairments (Reported) Functional Limitations- Mobility/Gait Distance limited to one or two blocks. Pain noted throughout. Ambulates with moderate right medial list. Does not use any assistive devices. Difficulty in ascending and descending stairs. Functional Limitations- Work/School Currently unable to RTW due to limited walking/weight bearing tolerance. Personal Factors Other Personal Factors That May Effect Body weight has increased by Therapy/Recovery 100 lbs over the last year. PT-OP-C Subjective Start: 03/01/19 09:06 Freq: Status: Active Protocol: Document 04/11/19 14:31 SAK (Rec: 04/11/19 14:37 SAK [id number]) OP-PT Subjective Patient Comments Patient Comments No new c/o. Fatigued but no increase in pain. PT-OP-F Manual Assessment Start: 03/01/19 09:06 Freq: Status: Active Protocol: Document 03/01/19 14:09 NFW (Rec: 03/01/19 16:27 NFW [id number]) Manual Assessments Joint Mobility Assessment Joint Mobility Assessment Mobility testing challenging medial structures painful. PT-OP-G Mobility & Gait Start: 03/01/19 09:06 Freq: Status: Active Protocol: Document 03/01/19 14:09 NFW (Rec: 03/01/19 16:27 NFW [id number]) OP Gait Assessment Gait Gait Assistance Required: Independent Assistive Devices Assistive Device None Gait Deviations General Gait Pattern Antalgic,Lateral Trunk Lean Factors Limiting Gait Function Factors Limiting Gait Function Abnormal Tonal Influences, Decreased Activity Tolerance, Decreased Strength,Pain,Poor Balance Comments Gait Comments Notable right medial list with weightbearing onto RLE. Has not used any assistive devices in the past. PT-OP-J Posture/Palpation/Skin Start: 03/01/19 09:06 Freq: Status: Active Protocol: Document 03/01/19 14:09 NFW (Rec: 03/01/19 16:27 NFW [id number]) Posture Evaluation Position Standing Evaluation View Anterior Weight Distribution Weight Shifted Left,Decreased Wt.Bear on (R) Hip Posture (R) Externally Rotated,(R) Abducted Ankle/Foot Posture (L) Pronated,(R) Calcaneal Eversion Foot Arch (R) Medium Arch,(L) Low Arch Palpation Assessment Location One Palpation Location Right knee, medial joint line Palpation Findings Tenderness Palpation Details No edema noted. Tenderness and pain along medial joint line right. Skin Assessment Other Assessments Skin Assessment Comments No discoloration noted right knee. PT-OP-K Range of Motion Start: 03/01/19 09:06 Freq: Status: Active Protocol: Document 03/01/19 14:09 NFW (Rec: 03/01/19 16:27 NFW [id number]) Knee Goniometric Range of Motion Knee Left Knee ROM WFL Yes Flexion Active (degrees) 125 Extension Active (degrees) 0 Right Patient Position Supine Flexion Active (degrees) 120 Extension Active (degrees) 0 PT-OP-L Special Tests Start: 03/01/19 09:06 Freq: Status: Active Protocol: Document 03/01/19 14:09 NFW (Rec: 03/01/19 16:27 NFW [id number]) Special Tests Knee Special Tests Anterior Draw Test Results Negative Luly Test Test Results Positive Comments Quite uncomfortable for patient. PT-OP-M Strength Start: 03/01/19 09:06 Freq: Status: Active Protocol: Document 03/01/19 14:09 NFW (Rec: 03/01/19 16:27 NFW [id number]) Knee Strength Knee Manual Muscle Testing Left Flexion (S2) 5 Normal Extension (L3) 5 Normal Right Reason Not Measured Behavior,Pain PT-OP-Q Treatments Start: 03/01/19 09:06 Freq: Status: Active Protocol: Document 03/01/19 14:09 NFW (Rec: 03/01/19 16:27 NFW [id number]) Therapeutic Exercises Supine Exercises 5 Supine Exercise Name Heels slides to full available ROM Side right Reps/Minutes 10 reps continuously Comments Emphasis on controlling of motion and the popping that occurs in his knee. 4 Supine Exercise Name Quad Sets Side right Reps/Minutes 10 - 10 sec holds 3 Supine Exercise Name TKE Side right Resistance none Equipment Used none Reps/Minutes 10 - 10 sec holds 2 Supine Exercise Name SLR Side right Resistance No Equipment Used None Reps/Minutes 10 - 10 sec holds 1 Supine Exercise Name Clam Side right Resistance none Equipment Used none Comments Instructed from previous PT in , mainly rechecked this exercise Gait Training Gait Activity 1 Description Gait training to decrease right medial list. Device Used cane and walking stick Treatment Focus To decrease right medial list, equalize step lengths Comments Initially patient resisted the use of walking aid. Noticed that he was able to walk more evenly with use of an aide. Preferred walking stick over cane. Plans to buy walking sticks. PT-OP-S Aquatic Treatment Start: 03/14/19 16:15 Freq: Status: Active Protocol: Document 04/11/19 14:31 SAK (Rec: 04/11/19 14:37 SAK [id number]) Aquatics Treatment Pool Entry/Exit Pool Entry/Exit Method Stairs Assistance Independent Water Walking Marching Water Level Chest Level Walking Equipment Ankle Weight- 5.0# Breaks March Water Level Chest Level Walking Equipment Ankle Weight- 5.0# Sideways Water Level Chest Level Walking Equipment Ankle Weight- 5.0# Backwards Water Level Chest Level Walking Equipment Ankle Weight- 2.5# Forwards Water Level Chest Level Walking Equipment Ankle Weight- 5.0# Lower Extremity Exercises ski-jacks Body Position Standing Water Level Chest Level Equipment Ankle Weight- 5.0# Reps/Duration 2x10 Comments sliding feet on floor of pool side kicks, back kicks Body Position Standing Water Level Chest Level Equipment Ankle Weight- 5.0# Reps/Duration 2x10 Comments increased effort bike Body Position Sitting Water Level Waist Level Equipment shoes Reps/Duration 10 minutes Comments tolerated well w/ mild SOB squats Details on stairs w/UE assist Water Level Waist Level Reps/Duration 15 Comments cues for muscle sequence activation hip CW/CCW Body Position Standing Water Level Waist Level Equipment Ankle Weight- 2.5# Reps/Duration 15x2 Comments all directions; no hh on wall; increased effort heel/toe raises Body Position Standing Water Level Chest Level Reps/Duration 2x10 ea bilat HS curls Body Position Standing Water Level Chest Level Equipment Ankle Weight- 5.0# Reps/Duration 2x10 bilat hip flex/ext, abd, add Body Position Standing Water Level Chest Level Equipment Ankle Weight- 5.0# Reps/Duration 2x15 ea bilat Lower Extremity Stretches right ITB Body Position Standing Water Level Waist Level Equipment Ankle Weight- 2.5# Reps/Duration 45 sec quads Body Position Standing Water Level Waist Level Equipment Large Noodle gastroc/soleus Body Position Standing Water Level Waist Level Equipment Large Noodle piriformis Body Position Standing Water Level Chest Level Reps/Duration 2x45 bilat Comments both forms HS Body Position Standing Water Level Chest Level Equipment Large Noodle Reps/Duration 2x45 bilat Comments braced at wall hip flexors Body Position Standing Reps/Duration 2x45 Comments at wall [place] Activities [place] Activities Bicycle Equipment large belt Duration 10 min PT-OP-T Assessment and Plan Start: 03/01/19 09:06 Freq: Status: Active Protocol: Document 04/11/19 14:31 AGATHA (Rec: 04/11/19 14:37 SAK [id number]) Physical Therapy Assessment Rehab Potential Rehabilitation Potential Good Evaluation Complexity Number of Personal Factors/Comorbidities 1-2 Number of Body Systems Impaired 1-2 Clinical Presentation at Evaluation Stable Impairments Impairments Activity Tolerance,Balance, Coordination,Functional Activities,Functional Mobility ,Gait,Pain,ROM,Strength Other Impairments Patient has noticed with increase of physical activity that he becomes readily SOB. Also making attempts in decreasing body weight. Goals Three Impairment Walking tolerance Short Term Goal (STG) Increase ability to walk on the level with or without walking aid up to three blocks . 04/11/19: good goal progress STG Duration 04/01/19 Cushion Sewer Goal (LTG) Increase walking tolerance on the level to half mile with or without walking aids. 04/11/19: good goal progress LTG Duration 06/01/19 Two Impairment Antalgic Gait Short Term Goal (STG) Consistent use of walking aide to decrease right medial list . 04/11/19: good goal progress STG Duration 04/01/19 Cushion Sewer Goal (LTG) Ambulation on the level without medial list and without use of walking aid. 04/11/19: good goal progress LTG Duration 06/01/19 One Impairment Pain Short Term Goal (STG) Decrease intensity of pain to 4/10 from current 10/23. 04/11/19: no pain during aquatic PT, but pain continues out of water. STG Duration 04/01/19 Cushion Sewer Goal (LTG) Decrease intensity of pain to 2/10 LTG Duration 05/01/10 Assessment Summary Assessment Good progress with bike and deep water walking; able to do both in 1 session today, improving activity tolerance. Increased pain at home this am, no pain with aquatic therapy. Physical Therapy Plan Frequency and Duration Frequency of Treatment 2x/Week Duration of Treatment 3 months Plan of Care Start Date 03/01/19 Plan of Care End Date 06/01/19 Therapeutic Interventions Therapeutic Interventions Aquatic Therapy,Balance Training,Gait Training,Home Exercise Program,Therapeutic Exercises Next Visit Focus/Plan Next Visit Plan Continue to progress aquatic exercise program for strengthening, stabilization, flexibility, and gait.
--- NOTE | 2019-04-16 16:16 | PT.OTN ---
Current Diagnoses Unilateral primary osteoarthritis, right knee (04/16/19) Complex tear of medial meniscus, current injury, right knee, subsequent encounter (04/16/19) Physical Therapy Treatment Note PT-OP-A Visit Information Start: 03/01/19 09:06 Freq: Status: Active Protocol: Document 04/16/19 15:57 SAK (Rec: 04/16/19 16:16 SAK [id number]) Out-Patient Physical Therapy Visit Information Visit Information Visit Type Aquatic Treatment Note Visit Start Time 10:15 Visit Stop Time 09:00 Total Visit Minutes 50 Visit Number 10 Number of PRODUCT/DEVICE TECHNOLOGIST Visits 0 PT-OP-B Current Condition Start: 03/01/19 09:06 Freq: Status: Active Protocol: Document 03/01/19 14:09 NFW (Rec: 03/01/19 16:27 NFW [id number]) Current Condition History of Current Condition Onset Date June 2016 Current Complaints Pain med. jt line rt knee. Inability to walk right. Knee pops w/motion. History of Current Condition At time of injury patient working as a [employer]. Started noticing pain in right knee Jun 2016 but did not report or seek medical attention until November 2017. Over the past year his body weight has increased by 100 lbs; he was dx'd with CHF and hospitalized in ICU for 10 days in March 2018; dx'd w/ diabetes type II and COPD. Prior Treatments and Tests Arthoscopic medial menisectomy June 2018. Physical therapy post surgery in [facility]. Benefit of PT with improved strength right knee but pain persists. Seeing a core shaper for assist in weight control. Future Testing and Treatments Planned Recommendation by MD for trial Pool therapy. Treatment Goals Patient/Caregiver Goals Being able to walk normally without pain. Prior Functional Status Baseline Function- ADL's Modified Independent Baseline Function- Mobility Modified Independent Baseline Function- Work/School Worked fulltime as [employer]. Current Functional Impairments (Reported) Functional Limitations- Mobility/Gait Distance limited to one or two blocks. Pain noted throughout. Ambulates with moderate right medial list. Does not use any assistive devices. Difficulty in ascending and descending stairs. Functional Limitations- Work/School Currently unable to RTW due to limited walking/weight bearing tolerance. Personal Factors Other Personal Factors That May Effect Body weight has increased by Therapy/Recovery 100 lbs over the last year. PT-OP-C Subjective Start: 03/01/19 09:06 Freq: Status: Active Protocol: Document 04/16/19 15:57 SAK (Rec: 04/16/19 16:16 SAK [id number]) OP-PT Subjective Patient Comments Patient Comments States he feels aquatic therapy is helping, minimal pain when in the pool. Continues to have painful popping of knee, when this happens he has much less tolerance for activity. PT-OP-F Manual Assessment Start: 03/01/19 09:06 Freq: Status: Active Protocol: Document 03/01/19 14:09 NFW (Rec: 03/01/19 16:27 NFW [id number]) Manual Assessments Joint Mobility Assessment Joint Mobility Assessment Mobility testing challenging medial structures painful. PT-OP-G Mobility & Gait Start: 03/01/19 09:06 Freq: Status: Active Protocol: Document 03/01/19 14:09 NFW (Rec: 03/01/19 16:27 NFW [id number]) OP Gait Assessment Gait Gait Assistance Required: Independent Assistive Devices Assistive Device None Gait Deviations General Gait Pattern Antalgic,Lateral Trunk Lean Factors Limiting Gait Function Factors Limiting Gait Function Abnormal Tonal Influences, Decreased Activity Tolerance, Decreased Strength,Pain,Poor Balance Comments Gait Comments Notable right medial list with weightbearing onto RLE. Has not used any assistive devices in the past. PT-OP-J Posture/Palpation/Skin Start: 03/01/19 09:06 Freq: Status: Active Protocol: Document 03/01/19 14:09 NFW (Rec: 03/01/19 16:27 NFW [id number]) Posture Evaluation Position Standing Evaluation View Anterior Weight Distribution Weight Shifted Left,Decreased Wt.Bear on (R) Hip Posture (R) Externally Rotated,(R) Abducted Ankle/Foot Posture (L) Pronated,(R) Calcaneal Eversion Foot Arch (R) Medium Arch,(L) Low Arch Palpation Assessment Location One Palpation Location Right knee, medial joint line Palpation Findings Tenderness Palpation Details No edema noted. Tenderness and pain along medial joint line right. Skin Assessment Other Assessments Skin Assessment Comments No discoloration noted right knee. PT-OP-K Range of Motion Start: 03/01/19 09:06 Freq: Status: Active Protocol: Document 03/01/19 14:09 NFW (Rec: 03/01/19 16:27 NFW [id number]) Knee Goniometric Range of Motion Knee Left Knee ROM WFL Yes Flexion Active (degrees) 125 Extension Active (degrees) 0 Right Patient Position Supine Flexion Active (degrees) 120 Extension Active (degrees) 0 PT-OP-L Special Tests Start: 03/01/19 09:06 Freq: Status: Active Protocol: Document 03/01/19 14:09 NFW (Rec: 03/01/19 16:27 NFW [id number]) Special Tests Knee Special Tests Anterior Draw Test Results Negative Luly Test Test Results Positive Comments Quite uncomfortable for patient. PT-OP-M Strength Start: 03/01/19 09:06 Freq: Status: Active Protocol: Document 03/01/19 14:09 NFW (Rec: 03/01/19 16:27 NFW [id number]) Knee Strength Knee Manual Muscle Testing Left Flexion (S2) 5 Normal Extension (L3) 5 Normal Right Reason Not Measured Behavior,Pain PT-OP-Q Treatments Start: 03/01/19 09:06 Freq: Status: Active Protocol: Document 03/01/19 14:09 NFW (Rec: 03/01/19 16:27 NFW [id number]) Therapeutic Exercises Supine Exercises 5 Supine Exercise Name Heels slides to full available ROM Side right Reps/Minutes 10 reps continuously Comments Emphasis on controlling of motion and the popping that occurs in his knee. 4 Supine Exercise Name Quad Sets Side right Reps/Minutes 10 - 10 sec holds 3 Supine Exercise Name TKE Side right Resistance none Equipment Used none Reps/Minutes 10 - 10 sec holds 2 Supine Exercise Name SLR Side right Resistance No Equipment Used None Reps/Minutes 10 - 10 sec holds 1 Supine Exercise Name Clam Side right Resistance none Equipment Used none Comments Instructed from previous PT in , mainly rechecked this exercise Gait Training Gait Activity 1 Description Gait training to decrease right medial list. Device Used cane and walking stick Treatment Focus To decrease right medial list, equalize step lengths Comments Initially patient resisted the use of walking aid. Noticed that he was able to walk more evenly with use of an aide. Preferred walking stick over cane. Plans to buy walking sticks. PT-OP-S Aquatic Treatment Start: 03/14/19 16:15 Freq: Status: Active Protocol: Document 04/16/19 15:57 SAK (Rec: 04/16/19 16:16 [facility] [id number]) Aquatics Treatment Pool Entry/Exit Pool Entry/Exit Method Stairs Assistance Independent Water Walking Marching Water Level Chest Level Walking Equipment large hydrofit cuffs Liberty March Water Level Chest Level Walking Equipment large hydrofit cuffs Sideways Water Level Chest Level Walking Equipment large hydrofit cuffs Backwards Water Level Chest Level Walking Equipment large hydrofit cuffs Forwards Water Level Chest Level Walking Equipment large hydrofit cuffs Lower Extremity Exercises bike Body Position Sitting Water Level Waist Level Equipment shoes Reps/Duration 15minutes Comments tolerated well w/ mild SOB HS curls Body Position Standing Water Level Chest Level Equipment large hydrofit cuffs Reps/Duration 2x10 bilat hip flex/ext, abd, add Body Position Standing Water Level Chest Level Equipment large hydrofit cuffs Reps/Duration 2x15 ea bilat Lower Extremity Stretches right ITB Body Position Standing Water Level Waist Level Equipment Large Noodle Reps/Duration 30 sec x 2 quads Body Position Standing Water Level Waist Level Equipment Large Noodle HS Body Position Standing Water Level Chest Level Equipment Large Noodle Reps/Duration 30 sec x 2 Comments braced at wall Spencer Activities Spencer Activities Bicycle,Cross [place],Running Equipment large belt Duration 10 min PT-OP-T Assessment and Plan Start: 03/01/19 09:06 Freq: Status: Active Protocol: Document 04/16/19 15:57 [facility] (Rec: 04/16/19 16:16 [facility] [id number]) Physical Therapy Assessment Rehab Potential Rehabilitation Potential Good Evaluation Complexity Number of Personal Factors/Comorbidities 1-2 Number of Body Systems Impaired 1-2 Clinical Presentation at Evaluation Stable Impairments Impairments Activity Tolerance,Balance, Coordination,Functional Activities,Functional Mobility ,Gait,Pain,ROM,Strength Other Impairments Patient has noticed with increase of physical activity that he becomes readily SOB. Also making attempts in decreasing body weight. Goals Three Impairment Walking tolerance Short Term Goal (STG) Increase ability to walk on the level with or without walking aid up to three blocks . 04/11/19: good goal progress STG Duration 04/01/19 Portrait Artist Goal (LTG) Increase walking tolerance on the level to half mile with or without walking aids. 04/11/19: good goal progress LTG Duration 06/01/19 Two Impairment Antalgic Gait Short Term Goal (STG) Consistent use of walking aide to decrease right medial list . 04/11/19: good goal progress STG Duration 04/01/19 Senior Care Goal (LTG) Ambulation on the level without medial list and without use of walking aid. 04/11/19: good goal progress LTG Duration 06/01/19 One Impairment Pain Short Term Goal (STG) Decrease intensity of pain to 4/10 from current 10/23. 04/11/19: no pain during aquatic PT, but pain continues out of water. STG Duration 04/01/19 Senior Care Goal (LTG) Decrease intensity of pain to 2/10 LTG Duration 05/01/10 Assessment Summary Assessment Had discussed kinesiotape trial for patient's knee but he forgot to return to deck after shower for taping. Will do next session. Function on land some improved but high pain level persists when knee pops which is frequently. REcommend further PT. May need to consider use of brace if kinesiotape not helpful Physical Therapy Plan Frequency and Duration Frequency of Treatment 2x/Week Duration of Treatment 3 months Plan of Care Start Date 03/01/19 Plan of Care End Date 06/01/19 Therapeutic Interventions Therapeutic Interventions Aquatic Therapy,Balance Training,Gait Training,Home Exercise Program,Therapeutic Exercises Next Visit Focus/Plan Next Note Type Treatment Note Next Visit Plan Assess response to use of flotation cuffs instead of ankle weights during shallow ther ex. Kinesiotape trial to knee for stabilization and pain management.
--- NOTE | 2019-04-18 10:24 | PT.OTN ---
Current Diagnoses Unilateral primary osteoarthritis, right knee (04/18/19) Complex tear of medial meniscus, current injury, right knee, subsequent encounter (04/18/19) Physical Therapy Treatment Note PT-OP-A Visit Information Start: 03/01/19 09:06 Freq: Status: Active Protocol: Document 04/18/19 10:15 SAK (Rec: 04/19/19 10:22 SAK [id number]) Out-Patient Physical Therapy Visit Information Visit Information Visit Type Aquatic Treatment Note Visit Start Time 10:15 Visit Stop Time 11:10 Total Visit Minutes 55 Visit Number 11 Number of MEDICAL ASST Visits 0 PT-OP-B Current Condition Start: 03/01/19 09:06 Freq: Status: Active Protocol: Document 03/01/19 14:09 NFW (Rec: 03/01/19 16:27 NFW [id number]) Current Condition History of Current Condition Onset Date June 2016 Current Complaints Pain med. jt line rt knee. Inability to walk right. Knee pops w/motion. History of Current Condition At time of injury patient working as a [employer]. Started noticing pain in right knee Jun 2016 but did not report or seek medical attention until November 2017. Over the past year his body weight has increased by 100 lbs; he was dx'd with CHF and hospitalized in ICU for 10 days in March 2018; dx'd w/ diabetes type II and COPD. Prior Treatments and Tests Arthoscopic medial menisectomy June 2018. Physical therapy post surgery in [facility]. Benefit of PT with improved strength right knee but pain persists. Seeing a associate chief nurse for assist in weight control. Future Testing and Treatments Planned Recommendation by MD for trial Pool therapy. Treatment Goals Patient/Caregiver Goals Being able to walk normally without pain. Prior Functional Status Baseline Function- ADL's Modified Independent Baseline Function- Mobility Modified Independent Baseline Function- Work/School Worked fulltime as [employer]. Current Functional Impairments (Reported) Functional Limitations- Mobility/Gait Distance limited to one or two blocks. Pain noted throughout. Ambulates with moderate right medial list. Does not use any assistive devices. Difficulty in ascending and descending stairs. Functional Limitations- Work/School Currently unable to RTW due to limited walking/weight bearing tolerance. Personal Factors Other Personal Factors That May Effect Body weight has increased by Therapy/Recovery 100 lbs over the last year. PT-OP-C Subjective Start: 03/01/19 09:06 Freq: Status: Active Protocol: Document 04/18/19 10:15 SAK (Rec: 04/19/19 10:22 SAK [id number]) OP-PT Subjective Patient Comments Patient Comments No new c/o, good tolerance for use of Hydrofit cuff trial instead of use of ankle weights. Seeing doctor tomorrow PT-OP-F Manual Assessment Start: 03/01/19 09:06 Freq: Status: Active Protocol: Document 03/01/19 14:09 NFW (Rec: 03/01/19 16:27 NFW [id number]) Manual Assessments Joint Mobility Assessment Joint Mobility Assessment Mobility testing challenging medial structures painful. PT-OP-G Mobility & Gait Start: 03/01/19 09:06 Freq: Status: Active Protocol: Document 03/01/19 14:09 NFW (Rec: 03/01/19 16:27 NFW [id number]) OP Gait Assessment Gait Gait Assistance Required: Independent Assistive Devices Assistive Device None Gait Deviations General Gait Pattern Antalgic,Lateral Trunk Lean Factors Limiting Gait Function Factors Limiting Gait Function Abnormal Tonal Influences, Decreased Activity Tolerance, Decreased Strength,Pain,Poor Balance Comments Gait Comments Notable right medial list with weightbearing onto RLE. Has not used any assistive devices in the past. PT-OP-J Posture/Palpation/Skin Start: 03/01/19 09:06 Freq: Status: Active Protocol: Document 03/01/19 14:09 NFW (Rec: 03/01/19 16:27 NFW [id number]) Posture Evaluation Position Standing Evaluation View Anterior Weight Distribution Weight Shifted Left,Decreased Wt.Bear on (R) Hip Posture (R) Externally Rotated,(R) Abducted Ankle/Foot Posture (L) Pronated,(R) Calcaneal Eversion Foot Arch (R) Medium Arch,(L) Low Arch Palpation Assessment Location One Palpation Location Right knee, medial joint line Palpation Findings Tenderness Palpation Details No edema noted. Tenderness and pain along medial joint line right. Skin Assessment Other Assessments Skin Assessment Comments No discoloration noted right knee. PT-OP-K Range of Motion Start: 03/01/19 09:06 Freq: Status: Active Protocol: Document 03/01/19 14:09 NFW (Rec: 03/01/19 16:27 NFW [id number]) Knee Goniometric Range of Motion Knee Left Knee ROM WFL Yes Flexion Active (degrees) 125 Extension Active (degrees) 0 Right Patient Position Supine Flexion Active (degrees) 120 Extension Active (degrees) 0 PT-OP-L Special Tests Start: 03/01/19 09:06 Freq: Status: Active Protocol: Document 03/01/19 14:09 NFW (Rec: 03/01/19 16:27 NFW [id number]) Special Tests Knee Special Tests Anterior Draw Test Results Negative Luly Test Test Results Positive Comments Quite uncomfortable for patient. PT-OP-M Strength Start: 03/01/19 09:06 Freq: Status: Active Protocol: Document 03/01/19 14:09 NFW (Rec: 03/01/19 16:27 NFW [id number]) Knee Strength Knee Manual Muscle Testing Left Flexion (S2) 5 Normal Extension (L3) 5 Normal Right Reason Not Measured Behavior,Pain PT-OP-Q Treatments Start: 03/01/19 09:06 Freq: Status: Active Protocol: Document 03/01/19 14:09 NFW (Rec: 03/01/19 16:27 NFW [id number]) Therapeutic Exercises Supine Exercises 5 Supine Exercise Name Heels slides to full available ROM Side right Reps/Minutes 10 reps continuously Comments Emphasis on controlling of motion and the popping that occurs in his knee. 4 Supine Exercise Name Quad Sets Side right Reps/Minutes 10 - 10 sec holds 3 Supine Exercise Name TKE Side right Resistance none Equipment Used none Reps/Minutes 10 - 10 sec holds 2 Supine Exercise Name SLR Side right Resistance No Equipment Used None Reps/Minutes 10 - 10 sec holds 1 Supine Exercise Name Clam Side right Resistance none Equipment Used none Comments Instructed from previous PT in , mainly rechecked this exercise Gait Training Gait Activity 1 Description Gait training to decrease right medial list. Device Used cane and walking stick Treatment Focus To decrease right medial list, equalize step lengths Comments Initially patient resisted the use of walking aid. Noticed that he was able to walk more evenly with use of an aide. Preferred walking stick over cane. Plans to buy walking sticks. PT-OP-S Aquatic Treatment Start: 03/14/19 16:15 Freq: Status: Active Protocol: Document 04/18/19 10:15 SAK (Rec: 04/19/19 10:22 SAK [id number]) Aquatics Treatment Pool Entry/Exit Pool Entry/Exit Method Stairs Assistance Independent Water Walking Marching Water Level Chest Level Walking Equipment large hydrofit cuffs [place] March Water Level Chest Level Walking Equipment large hydrofit cuffs Sideways Water Level Chest Level Walking Equipment large hydrofit cuffs Backwards Water Level Chest Level Walking Equipment large hydrofit cuffs Forwards Water Level Chest Level Walking Equipment large hydrofit cuffs Lower Extremity Exercises step-ups Equipment 8 stair squats Water Level Waist Level Reps/Duration 15 Comments cues for muscle sequence activation HS curls Body Position Standing Water Level Chest Level Equipment large hydrofit cuffs Reps/Duration 2x10 bilat hip flex/ext, abd, add Body Position Standing Water Level Chest Level Equipment large hydrofit cuffs Reps/Duration 2x15 ea bilat Lower Extremity Stretches right ITB Body Position Standing Water Level Waist Level Equipment large hydrofit cuffs Reps/Duration 30 sec x 2 quads Body Position Standing Water Level Waist Level Equipment large hydrofit cuffs HS Body Position Standing Water Level Chest Level Equipment large hydrofit cuffs Reps/Duration 30 sec x 2 Comments braced at wall [place] Activities [place] Activities Bicycle,Bicycle Backwards, Cross [place],Running Equipment large belt Duration 10 min Comments large noodle in UE's for backward bicycling. PT-OP-T Assessment and Plan Start: 03/01/19 09:06 Freq: Status: Active Protocol: Document 04/18/19 10:15 [facility] (Rec: 04/19/19 10:22 [facility] [id number]) Physical Therapy Assessment Rehab Potential Rehabilitation Potential Good Impairments Impairments Activity Tolerance,Balance, Coordination,Functional Activities,Functional Mobility ,Gait,Pain,ROM,Strength Other Impairments Patient has noticed with increase of physical activity that he becomes readily SOB. Also making attempts in decreasing body weight. Goals Three Impairment Walking tolerance Short Term Goal (STG) Increase ability to walk on the level with or without walking aid up to three blocks . 04/11/19: good goal progress STG Duration 04/01/19 Book Store Associate Goal (LTG) Increase walking tolerance on the level to half mile with or without walking aids. 04/11/19: good goal progress LTG Duration 06/01/19 Two Impairment Antalgic Gait Short Term Goal (STG) Consistent use of walking aide to decrease right medial list . 04/11/19: good goal progress STG Duration 04/01/19 Prison Goal (LTG) Ambulation on the level without medial list and without use of walking aid. 04/11/19: good goal progress LTG Duration 06/01/19 One Impairment Pain Short Term Goal (STG) Decrease intensity of pain to 4/10 from current 10/23. 04/11/19: no pain during aquatic PT, but pain continues out of water. STG Duration 04/01/19 Prison Goal (LTG) Decrease intensity of pain to 2/10 LTG Duration 05/01/10 Assessment Summary Assessment Patient not able to stay for kinesiotape trial today, will tomorrow. Good tolerance for aquatic exercise including use of hydrofit cuffs. Physical Therapy Plan Frequency and Duration Frequency of Treatment 2x/Week Duration of Treatment 3 months Plan of Care Start Date 03/01/19 Plan of Care End Date 06/01/19 Therapeutic Interventions Therapeutic Interventions Aquatic Therapy,Balance Training,Gait Training,Home Exercise Program,Therapeutic Exercises Next Visit Focus/Plan Next Note Type Treatment Note Next Visit Plan Kinesiotape trial to knee for stabilization and pain management. Sees doctor tomorrow.
--- NOTE | 2019-04-19 10:22 | PT.OTN ---
Current Diagnoses Unilateral primary osteoarthritis, right knee (04/18/19) Complex tear of medial meniscus, current injury, right knee, subsequent encounter (04/18/19) Physical Therapy Treatment Note PT-OP-A Visit Information Start: 03/01/19 09:06 Freq: Status: Active Protocol: Document 04/18/19 10:15 SAK (Rec: 04/19/19 10:22 SAK [id number]) Out-Patient Physical Therapy Visit Information Visit Information Visit Type Aquatic Treatment Note Visit Start Time 10:15 Visit Stop Time 11:10 Total Visit Minutes 55 Visit Number 11 Number of LIPSTICK MOLDER Visits 0 PT-OP-B Current Condition Start: 03/01/19 09:06 Freq: Status: Active Protocol: Document 03/01/19 14:09 NFW (Rec: 03/01/19 16:27 NFW [id number]) Current Condition History of Current Condition Onset Date June 2016 Current Complaints Pain med. jt line rt knee. Inability to walk right. Knee pops w/motion. History of Current Condition At time of injury patient working as a [employer]. Started noticing pain in right knee Jun 2016 but did not report or seek medical attention until November 2017. Over the past year his body weight has increased by 100 lbs; he was dx'd with CHF and hospitalized in ICU for 10 days in March 2018; dx'd w/ diabetes type II and COPD. Prior Treatments and Tests Arthoscopic medial menisectomy June 2018. Physical therapy post surgery in [facility]. Benefit of PT with improved strength right knee but pain persists. Seeing a director of clinical services for assist in weight control. Future Testing and Treatments Planned Recommendation by MD for trial Pool therapy. Treatment Goals Patient/Caregiver Goals Being able to walk normally without pain. Prior Functional Status Baseline Function- ADL's Modified Independent Baseline Function- Mobility Modified Independent Baseline Function- Work/School Worked fulltime as [employer]. Current Functional Impairments (Reported) Functional Limitations- Mobility/Gait Distance limited to one or two blocks. Pain noted throughout. Ambulates with moderate right medial list. Does not use any assistive devices. Difficulty in ascending and descending stairs. Functional Limitations- Work/School Currently unable to RTW due to limited walking/weight bearing tolerance. Personal Factors Other Personal Factors That May Effect Body weight has increased by Therapy/Recovery 100 lbs over the last year. PT-OP-C Subjective Start: 03/01/19 09:06 Freq: Status: Active Protocol: Document 04/18/19 10:15 SAK (Rec: 04/19/19 10:22 SAK [id number]) OP-PT Subjective Patient Comments Patient Comments No new c/o, good tolerance for use of Hydrofit cuff trial instead of use of ankle weights. Seeing doctor tomorrow PT-OP-F Manual Assessment Start: 03/01/19 09:06 Freq: Status: Active Protocol: Document 03/01/19 14:09 NFW (Rec: 03/01/19 16:27 NFW [id number]) Manual Assessments Joint Mobility Assessment Joint Mobility Assessment Mobility testing challenging medial structures painful. PT-OP-G Mobility & Gait Start: 03/01/19 09:06 Freq: Status: Active Protocol: Document 03/01/19 14:09 NFW (Rec: 03/01/19 16:27 NFW [id number]) OP Gait Assessment Gait Gait Assistance Required: Independent Assistive Devices Assistive Device None Gait Deviations General Gait Pattern Antalgic,Lateral Trunk Lean Factors Limiting Gait Function Factors Limiting Gait Function Abnormal Tonal Influences, Decreased Activity Tolerance, Decreased Strength,Pain,Poor Balance Comments Gait Comments Notable right medial list with weightbearing onto RLE. Has not used any assistive devices in the past. PT-OP-J Posture/Palpation/Skin Start: 03/01/19 09:06 Freq: Status: Active Protocol: Document 03/01/19 14:09 NFW (Rec: 03/01/19 16:27 NFW [id number]) Posture Evaluation Position Standing Evaluation View Anterior Weight Distribution Weight Shifted Left,Decreased Wt.Bear on (R) Hip Posture (R) Externally Rotated,(R) Abducted Ankle/Foot Posture (L) Pronated,(R) Calcaneal Eversion Foot Arch (R) Medium Arch,(L) Low Arch Palpation Assessment Location One Palpation Location Right knee, medial joint line Palpation Findings Tenderness Palpation Details No edema noted. Tenderness and pain along medial joint line right. Skin Assessment Other Assessments Skin Assessment Comments No discoloration noted right knee. PT-OP-K Range of Motion Start: 03/01/19 09:06 Freq: Status: Active Protocol: Document 03/01/19 14:09 NFW (Rec: 03/01/19 16:27 NFW [id number]) Knee Goniometric Range of Motion Knee Left Knee ROM WFL Yes Flexion Active (degrees) 125 Extension Active (degrees) 0 Right Patient Position Supine Flexion Active (degrees) 120 Extension Active (degrees) 0 PT-OP-L Special Tests Start: 03/01/19 09:06 Freq: Status: Active Protocol: Document 03/01/19 14:09 NFW (Rec: 03/01/19 16:27 NFW [id number]) Special Tests Knee Special Tests Anterior Draw Test Results Negative Luly Test Test Results Positive Comments Quite uncomfortable for patient. PT-OP-M Strength Start: 03/01/19 09:06 Freq: Status: Active Protocol: Document 03/01/19 14:09 NFW (Rec: 03/01/19 16:27 NFW [id number]) Knee Strength Knee Manual Muscle Testing Left Flexion (S2) 5 Normal Extension (L3) 5 Normal Right Reason Not Measured Behavior,Pain PT-OP-Q Treatments Start: 03/01/19 09:06 Freq: Status: Active Protocol: Document 03/01/19 14:09 NFW (Rec: 03/01/19 16:27 NFW [id number]) Therapeutic Exercises Supine Exercises 5 Supine Exercise Name Heels slides to full available ROM Side right Reps/Minutes 10 reps continuously Comments Emphasis on controlling of motion and the popping that occurs in his knee. 4 Supine Exercise Name Quad Sets Side right Reps/Minutes 10 - 10 sec holds 3 Supine Exercise Name TKE Side right Resistance none Equipment Used none Reps/Minutes 10 - 10 sec holds 2 Supine Exercise Name SLR Side right Resistance No Equipment Used None Reps/Minutes 10 - 10 sec holds 1 Supine Exercise Name Clam Side right Resistance none Equipment Used none Comments Instructed from previous PT in , mainly rechecked this exercise Gait Training Gait Activity 1 Description Gait training to decrease right medial list. Device Used cane and walking stick Treatment Focus To decrease right medial list, equalize step lengths Comments Initially patient resisted the use of walking aid. Noticed that he was able to walk more evenly with use of an aide. Preferred walking stick over cane. Plans to buy walking sticks. PT-OP-S Aquatic Treatment Start: 03/14/19 16:15 Freq: Status: Active Protocol: Document 04/18/19 10:15 SAK (Rec: 04/19/19 10:22 SAK [id number]) Aquatics Treatment Pool Entry/Exit Pool Entry/Exit Method Stairs Assistance Independent Water Walking Marching Water Level Chest Level Walking Equipment large hydrofit cuffs [place] March Water Level Chest Level Walking Equipment large hydrofit cuffs Sideways Water Level Chest Level Walking Equipment large hydrofit cuffs Backwards Water Level Chest Level Walking Equipment large hydrofit cuffs Forwards Water Level Chest Level Walking Equipment large hydrofit cuffs Lower Extremity Exercises step-ups Equipment 8 stair squats Water Level Waist Level Reps/Duration 15 Comments cues for muscle sequence activation HS curls Body Position Standing Water Level Chest Level Equipment large hydrofit cuffs Reps/Duration 2x10 bilat hip flex/ext, abd, add Body Position Standing Water Level Chest Level Equipment large hydrofit cuffs Reps/Duration 2x15 ea bilat Lower Extremity Stretches right ITB Body Position Standing Water Level Waist Level Equipment large hydrofit cuffs Reps/Duration 30 sec x 2 quads Body Position Standing Water Level Waist Level Equipment large hydrofit cuffs HS Body Position Standing Water Level Chest Level Equipment large hydrofit cuffs Reps/Duration 30 sec x 2 Comments braced at wall [place] Activities [place] Activities Bicycle,Bicycle Backwards, Cross [place],Running Equipment large belt Duration 10 min Comments large noodle in UE's for backward bicycling. PT-OP-T Assessment and Plan Start: 03/01/19 09:06 Freq: Status: Active Protocol: Document 04/18/19 10:15 [facility] (Rec: 04/19/19 10:22 [facility] [id number]) Physical Therapy Assessment Rehab Potential Rehabilitation Potential Good Impairments Impairments Activity Tolerance,Balance, Coordination,Functional Activities,Functional Mobility ,Gait,Pain,ROM,Strength Other Impairments Patient has noticed with increase of physical activity that he becomes readily SOB. Also making attempts in decreasing body weight. Goals Three Impairment Walking tolerance Short Term Goal (STG) Increase ability to walk on the level with or without walking aid up to three blocks . 04/11/19: good goal progress STG Duration 04/01/19 Sales Coach Goal (LTG) Increase walking tolerance on the level to half mile with or without walking aids. 04/11/19: good goal progress LTG Duration 06/01/19 Two Impairment Antalgic Gait Short Term Goal (STG) Consistent use of walking aide to decrease right medial list . 04/11/19: good goal progress STG Duration 04/01/19 Custodial Goal (LTG) Ambulation on the level without medial list and without use of walking aid. 04/11/19: good goal progress LTG Duration 06/01/19 One Impairment Pain Short Term Goal (STG) Decrease intensity of pain to 4/10 from current 10/23. 04/11/19: no pain during aquatic PT, but pain continues out of water. STG Duration 04/01/19 Custodial Goal (LTG) Decrease intensity of pain to 2/10 LTG Duration 05/01/10 Assessment Summary Assessment Patient not able to stay for kinesiotape trial today, will tomorrow. Good tolerance for aquatic exercise including use of hydrofit cuffs. Physical Therapy Plan Frequency and Duration Frequency of Treatment 2x/Week Duration of Treatment 3 months Plan of Care Start Date 03/01/19 Plan of Care End Date 06/01/19 Therapeutic Interventions Therapeutic Interventions Aquatic Therapy,Balance Training,Gait Training,Home Exercise Program,Therapeutic Exercises Next Visit Focus/Plan Next Note Type Treatment Note Next Visit Plan Kinesiotape trial to knee for stabilization and pain management. Sees doctor tomorrow.
--- NOTE | 2019-05-03 11:43 | PT.OPDS ---
Current Diagnoses Unilateral primary osteoarthritis, right knee (04/18/19) Complex tear of medial meniscus, current injury, right knee, subsequent encounter (04/18/19) Visit Care Team Role Provider Type Robby Butt Attending Provider Non-Staff Specialty: Medical Address: [address] [place] [address] , [place], [address] Email: Visit Number Visit Number 11 Discharge Summary PT-OP-B Current Condition Start: 03/01/19 09:06 Freq: Status: Active Protocol: Document 03/01/19 14:09 NFW (Rec: 03/01/19 16:27 NFW [id number]) Current Condition History of Current Condition Onset Date June 2016 Current Complaints Pain med. jt line rt knee. Inability to walk right. Knee pops w/motion. History of Current Condition At time of injury patient working as a [employer]. Started noticing pain in right knee Jun 2016 but did not report or seek medical attention until November 2017. Over the past year his body weight has increased by 100 lbs; he was dx'd with CHF and hospitalized in ICU for 10 days in March 2018; dx'd w/ diabetes type II and COPD. Prior Treatments and Tests Arthoscopic medial menisectomy June 2018. Physical therapy post surgery in [place]. Benefit of PT with improved strength right knee but pain persists. Seeing a day haul youth supervisor for assist in weight control. Future Testing and Treatments Planned Recommendation by MD for trial Pool therapy. Treatment Goals Patient/Caregiver Goals Being able to walk normally without pain. Prior Functional Status Baseline Function- ADL's Modified Independent Baseline Function- Mobility Modified Independent Baseline Function- Work/School Worked fulltime as [employer]. Current Functional Impairments (Reported) Functional Limitations- Mobility/Gait Distance limited to one or two blocks. Pain noted throughout. Ambulates with moderate right medial list. Does not use any assistive devices. Difficulty in ascending and descending stairs. Functional Limitations- Work/School Currently unable to RTW due to limited walking/weight bearing tolerance. Personal Factors Other Personal Factors That May Effect Body weight has increased by Therapy/Recovery 100 lbs over the last year. PT-OP-C Subjective Start: 03/01/19 09:06 Freq: Status: Active Protocol: Document 04/18/19 10:15 SAK (Rec: 04/19/19 10:22 SAK [id number]) OP-PT Subjective Patient Comments Patient Comments No new c/o, good tolerance for use of Hydrofit cuff trial instead of use of ankle weights. Seeing doctor tomorrow PT-OP-F Manual Assessment Start: 03/01/19 09:06 Freq: Status: Active Protocol: Document 03/01/19 14:09 NFW (Rec: 03/01/19 16:27 NFW [id number]) Manual Assessments Joint Mobility Assessment Joint Mobility Assessment Mobility testing challenging medial structures painful. PT-OP-G Mobility & Gait Start: 03/01/19 09:06 Freq: Status: Active Protocol: Document 03/01/19 14:09 NFW (Rec: 03/01/19 16:27 NFW [id number]) OP Gait Assessment Gait Gait Assistance Required: Independent Assistive Devices Assistive Device None Gait Deviations General Gait Pattern Antalgic,Lateral Trunk Lean Factors Limiting Gait Function Factors Limiting Gait Function Abnormal Tonal Influences, Decreased Activity Tolerance, Decreased Strength,Pain,Poor Balance Comments Gait Comments Notable right medial list with weightbearing onto RLE. Has not used any assistive devices in the past. PT-OP-J Posture/Palpation/Skin Start: 03/01/19 09:06 Freq: Status: Active Protocol: Document 03/01/19 14:09 NFW (Rec: 03/01/19 16:27 NFW [id number]) Posture Evaluation Position Standing Evaluation View Anterior Weight Distribution Weight Shifted Left,Decreased Wt.Bear on (R) Hip Posture (R) Externally Rotated,(R) Abducted Ankle/Foot Posture (L) Pronated,(R) Calcaneal Eversion Foot Arch (R) Medium Arch,(L) Low Arch Palpation Assessment Location One Palpation Location Right knee, medial joint line Palpation Findings Tenderness Palpation Details No edema noted. Tenderness and pain along medial joint line right. Skin Assessment Other Assessments Skin Assessment Comments No discoloration noted right knee. PT-OP-K Range of Motion Start: 03/01/19 09:06 Freq: Status: Active Protocol: Document 03/01/19 14:09 NFW (Rec: 03/01/19 16:27 NFW [id number]) Knee Goniometric Range of Motion Knee Left Knee ROM WFL Yes Flexion Active (degrees) 125 Extension Active (degrees) 0 Right Patient Position Supine Flexion Active (degrees) 120 Extension Active (degrees) 0 PT-OP-L Special Tests Start: 03/01/19 09:06 Freq: Status: Active Protocol: Document 03/01/19 14:09 NFW (Rec: 03/01/19 16:27 NFW [id number]) Special Tests Knee Special Tests Anterior Draw Test Results Negative Luly Test Test Results Positive Comments Quite uncomfortable for patient. PT-OP-M Strength Start: 03/01/19 09:06 Freq: Status: Active Protocol: Document 03/01/19 14:09 NFW (Rec: 03/01/19 16:27 NFW [id number]) Knee Strength Knee Manual Muscle Testing Left Flexion (S2) 5 Normal Extension (L3) 5 Normal Right Reason Not Measured Behavior,Pain PT-OP-T Assessment and Plan Start: 03/01/19 09:06 Freq: Status: Active Protocol: Document 05/03/19 11:42 SAK (Rec: 05/03/19 11:43 SAK [id number]) Physical Therapy Plan Discharge Physical Therapy Discharge Reasons No Longer Attending PT Discharge Comments Insurance denial.
== END 2019-05-14 13:25 ==
LOC: PHYS 10:15
PROVIDERS: Visit Provider Orthopaedic Surgery
DX: M17.11 Unilateral primary osteoarthritis, right knee (principal); S83.231D Complex tear of medial meniscus, current injury, right knee, subsequent encounter
CPT/HCPCS: 97113; 97162

== ENCOUNTER 2023-03-08 08:37 | Day surgery (SDC) | payer OTHER, SELFPAY ==
[2023-03-01 07:32] VITALS: BMI 37.5
[2023-03-08] VITALS (13 sets, daily range): BP systolic 107–141; BP diastolic 46–72; PULSE 49–85; RESP 14–18; TEMP 36.1–36.5; O2SAT 94–98; BMI 37.5
--- NOTE | 2023-03-08 06:00 | DI.RAD.S_ITS ---
PROCEDURE: XR PELVIS 1-2V INDICATIONS: CLARIBEL TECHNIQUE: Intra-operative view of the pelvis and hip acquired. COMPARISON: None. FINDINGS: Bones: Intraoperative devices prior to placement of arthroplasty prostheses are in expected positions. No fractures or suspicious bony lesions. Soft tissues: Overlying surgical retractors are present, along with other intraoperative changes. IMPRESSION: Expected intraoperative postsurgical changes for left hip arthroplasty. Dictated by: Debi Woodward MD, PhD on 03/08/2023 at 14:54 Approved by: Debi Woodward MD, PhD on 03/08/2023 at 14:54
[2023-03-08] MEDS: ACETAMINOPHEN 325 MG TABLET 975 MG PO (09:51)
[2023-03-08] MEDS: CELECOXIB 200 MG CAPSULE PO (09:52)
[2023-03-08] MEDS: PREGABALIN 75 MG CAPSULE PO (09:52)
[2023-03-08] MEDS: LACTATED RINGERS 1,000 ML 42 ML IV ×2 (09:54→13:05)
[2023-03-08] MEDS: VANCOMYCIN 1,000 MG/200 ML PIGGYBACK 200 MG IV (10:21)
--- NOTE | 2023-03-08 10:52 | PM.PREOP ---
Pre-operative Note Interval Note History & Physical reviewed/Exam performed by Physician: Yes Changes to H&P: No
[2023-03-08] MEDS: CEFAZOLIN VIAL 3 GM in SODIUM CHLORIDE 0.9% 100 ML IV ×2 (11:44→20:35)
[2023-03-08] MEDS: TRANEXAMIC ACID 1,000 MG VIAL 1000 MG INJ ×2 (12:15→14:15)
--- NOTE | 2023-03-08 12:41 | SUR.OPER ---
Lateral on padded OR bed. Gel axillary roll. Arms secured on padded armboard with pillow supporting top arm. Padded hip positioner braces x4 - anterior and posterior chest and pelvis. Additional gel pad used anterior pelvis. Gel pad under bottom leg from knee to foot and secured with tape over sheet.
[2023-03-08] MEDS: BUPIVACAINE LIPOSOME 266 MG/20 ML VIAL INJ (12:58)
[2023-03-08] MEDS: BUPIVACAINE 0.25% (PF) 60 ML, EPINEPHrine 0.3 MG INJ (12:59)
[2023-03-08] MEDS: EPINEPHrine 1 MG/ML TOP (13:15)
--- NOTE | 2023-03-08 14:45 | DI.RAD.S_ITS ---
PROCEDURE: XR HIP W PEL IF DONE LT 2V INDICATIONS: TOTAL LEFT HIP TECHNIQUE: AP pelvis and lateral view of the left hip acquired. COMPARISON: None. FINDINGS: Bones: Patient is status post left hip arthroplasty, with hardware components in expected positions. The hip joint appears congruent. The visualized bony structures appear intact. Soft tissues: Overlying postoperative changes are noted. No suspicious soft tissue densities. IMPRESSION: Expected postsurgical change for left hip arthroplasty. Dictated by: Debi Woodward MD, PhD on 03/08/2023 at 16:11 Approved by: Debi Woodward MD, PhD on 03/08/2023 at 16:12
[2023-03-08] MEDS: OXYCODONE IR 5 MG TABLET PO ×2 (15:26→16:11)
[2023-03-08] MEDS: ONDANSETRON 4 MG/2 ML INJ IV (15:26)
[2023-03-08] MEDS: ACETAMINOPHEN 325 MG TABLET 650 MG PO ×2 (16:10→23:15)
[2023-03-08] MEDS: LACTATED RINGERS 1,000 ML 100 ML IV (16:13)
--- NOTE | 2023-03-08 20:05 | P.OP_ITS ---
Operative Date/Time/Diagnoses Date of procedure: 03/08/23 Time of procedure: 12:30 Pre-op diagnosis: Left hip osteoarthritis Post-op diagnosis: same Procedure & Clinicians Procedure: Left total hip arthroplasty posterior approach Same procedure as scheduled: Yes Indications: The patient has had progressively worsening left hip pain with radiographic changes consistent with arthritis. Non-operative management has failed and the patient has requested total hip replacement. The risks, benefits and alternatives to surgery were discussed with the patient prior to proceeding. Risks discussed included, but were not limited to, failure to relieve pain, leg length discrepancy, dislocation, stiffness, infection, nerve damage, deep venous thrombosis, pulmonary embolism, stroke, coma, heart attack, permanent paralysis and , as well as the potential need for eventual revision of the prosthetic. Surgeon: Criss Sylvester Nub Card Tender: Mann Quinn Anesthesia Type: General and Spinal Operative Notes Findings: Severe left hip osteoarthritis, acceptable stability Closure Type: primary Specimen(s): none sent Prosthetic devices, grafts, tissues, transplants, or devices: Size 60 R3 cup, lateralized +4 poly liner 40 x 60, +4 Oxinium femoral head, size 4 polarstem lateralized stem with collar, one 6.5mm screw Estimated Blood Loss (mL): 250 Blood products transfused: none Procedure in detail: The patient was seen in the pre-operative area, where the patient identified the left hip as the operative site and this was marked with my initials. The patient received pre-operative antibiotics and was taken to the operating room and placed on the operative table in the right lateral decubitus position after satisfactory anesthesia. A real time analyst out was performed. The left leg was prepared from the ankle to the iliac crest with ChloroPrep in the usual fashion and draped through sterile drapes. A PA was used throughout the procedure for retaction and intraoperative positioning in order to allow safe implantation of the components. The hip was approached through an approximately 20 cm incision centered over the greater trochanter and curving gently posteriorly as it went proximally. This w as carried sharply to the fascia gabriel, which was divided and retracted with a self retaining retractor. The trochanteric bursa was excised with care being taken to avoid the sciatic nerve, which was identified and protected throughout the case. The short external rotators were incised and the capsulomuscular flap was raised and tagged for later repair. The hip was dislocated, and a femoral neck osteotomy performed approximately 15 mm above the lesser trochanter. Retractors were placed around the femur. The canal was opened with a box cutting osteotome, followed by a T handled reamer and a lateralizing reamer. The chili pepper broach was then used, followed by sequential broaching until there was good stability of the broach in the femur. Retractors were placed to expose the acetabulum. The labrum and central soft tissues were removed. Reaming was performed initially going up in 2 mm increments, then 1 mm increments until good bite was obtained with an odd sized reamer. The cup 1 mm larger than the last reamer was then inserted using the appropriate anteversion guides. It was further stabilized with a single screw. A trial neutral liner was placed. The broach was placed in the canal. A trial head and neck were then placed and the hip relocated and checked for leg length and stability. An intraoperative film confirmed the component position and no evidence of fracture. The patient was stable in the position of sleep, of squatting, and could be put through a range of motion with 45 degrees internal rotation without dislocation. At 90 degrees flexion, internal rotation to 70 degrees was possible before dislocation. This was felt to be satisfactory and the appropriate components were opened, and the trials were removed. It was felt the patient would do better with a lateralized poly liner and he was stable with a +4 femoral head. The acetabular liner was impacted into position. The final stem was then impacted into the prepared femoral canal. A brief Betadine soak was performed while trialing with head options. The hip was meticulously irrigated with normal saline. Finally the femoral head was impacted onto the stem. The acetabulum was cleared of all material and the hip relocated one final time. A repeat x ray showed acceptable alignment. The capsulomuscular flap was then repaired to the greater trochanter though an awl hole using the tag sutures. The short external rotators were repaired with a nonabsorbable suture. A deep drain was placed and brought out anteriorly. The fascia gabriel was closed with Vicryl. The subcutaneous layer was closed with b arbed sutures and skin rita. A Georgi dressing was applied and the patient was taken to recovery having tolerated the procedure well. Complications: none Post-operative Condition: stable Disposition: Acute Care Plan for aftercare: The patient will be maintained on a standard total hip replacement protocol with weight bearing as tolerated and posterior hip precautions. The patient will receive Aspirin and sequential compression devices for DVT prophylaxis. The patient will be discharged home when safe for the home environment.
[2023-03-08] MEDS: GABAPENTIN 300 MG CAPSULE PO (20:35)
[2023-03-08] MEDS: ASPIRIN EC 81 MG TABLET PO (20:35)
[2023-03-08] MEDS: METFORMIN HCL 500 MG TABLET PO (20:35)
[2023-03-08] MEDS: DOCUSATE 100 MG CAPSULE PO (20:35)
[2023-03-08] MEDS: carvediloL 3.125 MG TABLET 6.25 MG PO (20:36)
[2023-03-08] MEDS: OXYCODONE IR 10 MG TABLET PO (23:15)
[2023-03-09] MEDS: LACTATED RINGERS 1,000 ML 100 ML IV (01:28)
[2023-03-09] MEDS: CEFAZOLIN VIAL 3 GM in SODIUM CHLORIDE 0.9% 100 ML IV (03:36)
[2023-03-09] MEDS: LEVOTHYROXINE 25 MCG TABLET PO (05:58)
[2023-03-09 06:24] LABS: Hematocrit 36.3 % (41-53); Hemoglobin 12.4 g/dL (13.5-17.5)
--- NOTE | 2023-03-09 07:24 | P.DS_ITS ---
History of Present Illness History of Present Illness Date Patient Seen: 03/09/23 Time Patient Seen: 07:24 Chief complaint: OPB Narrative: Operative Date/Time/Diagnoses Date of procedure: 03/08/23 Time of procedure: 12:30 Pre-op diagnosis: Left hip osteoarthritis Post-op diagnosis: same Procedure & Clinicians Procedure: Left total hip arthroplasty posterior approach Same procedure as scheduled: Yes Indications: The patient has had progressively worsening left hip pain with radiographic changes consistent with arthritis. Non-operative management has failed and the patient has requested total hip replacement. The risks, benefits and alternatives to surgery were discussed with the patient prior to proceeding. Risks discussed included, but were not limited to, failure to relieve pain, leg length discrepancy, dislocation, stiffness, infection, nerve damage, deep venous thrombosis, pulmonary embolism, stroke, coma, heart attack, permanent paralysis and , as well as the potential need for eventual revision of the prosthetic. Surgeon: Criss Sylvester Log Yard Manager: Mann Quinn Anesthesia Type: General and Spinal Operative Notes Findings: Severe left hip osteoarthritis, acceptable stability Closure Type: primary Specimen(s): none sent Prosthetic devices, grafts, tissues, transplants, or devices: Size 60 R3 cup, lateralized +4 poly liner 40 x 60, +4 Oxinium femoral head, size 4 polarstem lateralized stem with collar, one 6.5mm screw Estimated Blood Loss (mL): 250 Blood products transfused: none Discharge Providers Provider Discharge Date: 03/09/23 Primary care physician: Ernestina Hernnadez DO Consults: 03/08/23 06:00 Consult to Anesthesiology Routine Comment: Consulting Provider: Anesthesiologist Reason for consultation: Regional block for post operative pain control 03/08/23 15:54 Consult to Discharge Planning Routine Comment: Consult to Occupational Therapy Evaluate & Treat Comment: Physician Instructions: Evaluate and treat Consult to Physical Therapy Evaluate & Treat Comment: Physician Instructions: post op CLARIBEL protocol Discharge provider: Karla Lopez PA-C Summary Hospital Course Discharge Diagnosis: Left hip osteoarthritis, s/p left total hip arthroplasty Hospital Course: Mr Roberts's hospital course was unremarkable. On the morning of POD# 1, he was feeling well and wanted to go home. He was eating and voiding without difficulty and his pain was well controlled with oral medication. He had been OOB but had not yet worked with PT at the time of my visit. Exam Vital Signs (past 8 hours): Oxygen Delivery Method Room Air Oxygen Flow Rate 0 Narrative Exam Narrative: 5/5 strength in hip flexors, quadriceps, hamstrings, DF, PF, and EHL on left. Sensation to light touch intact throughout LLE. Calf soft, compressible, nontender. Hemovac with 240mLs of bloody drainage since surgery. Aquacel dressing CDI. Objective Labs 03/09/23 06:00 Labs: Laboratory Results - last 24 hr 03/09/23 06:00 Hgb 12.4 L Hct 36.3 L PFSH Medical History (Updated 03/01/23 @ 09:24 by Faith Lazaro RN) Osteoarthritis Thyroid disorder CAMILLA (obstructive sleep apnea) HTN (hypertension) Hypercholesteremia CHF (congestive heart failure) Afib (2019) Diabetes History of alcohol abuse COPD (chronic obstructive pulmonary disease) Cor pulmonale Surgical History (Updated 03/09/23 @ 07:34 by Karla Lopez PA-C) Hx of tonsillectomy History of total right knee replacement (08/03/21) Hx of arthroscopy of right knee (07/05/18) Hx of colonoscopy (05/25/22) Hx of inguinal hernia repair Social History household members: none Smoking Status: Former smoker alcohol intake: former Discharge Assessment & Plan Assessment and Plan Assessment: Left hip osteoarthritis, s/p left total hip arthroplasty Plan of Treatment: Discharge home after PT if PT agrees. Multimodal pain control, ASA BID for VTE prophylaxis, outpt PT, f/u in office in 2 weeks. Discharge Plan Discharge Plan Patient Disposition: Home Discharge orders & Medications Discharge Orders: Discharge (Order); Ordered 03/09/23 Ordered By: Karla Lopez Prescriptions: New oxycodone 5 mg Tablet 5 mg PO Q4-6H PRN (Reason: Pain, Moderate (4-6)) Qty: 60 0RF aspirin 81 mg Tablet,Delayed Release (Dr/Ec) 81 mg PO BID Qty: 90 0RF docusate sodium 100 mg Capsule 100 mg PO BID PRN (Reason: constipation) Qty: 60 1RF acetaminophen 325 mg Tablet 650 mg PO Q6H PRN (Reason: Fever/Mild Pain (1-3)) Qty: 240 0RF ibuprofen 400 mg Tablet 400 mg PO Q4H PRN (Reason: Pain, Mild (1-3)) Qty: 120 0RF Continued atorvastatin 40 mg Tablet 40 mg PO DAILY metformin 500 mg Tablet 500 mg PO BID carvedilol 6.25 mg Tablet 6.25 mg PO BID Rx Instructions: must administer with a meal/food levothyroxine 25 mcg Tablet 25 mcg PO DAILY tamsulosin 0.4 mg Capsule 0.4 mg PO DAILY gabapentin 300 mg Capsule 300 mg PO BEDTIME Jardiance 10 mg Tablet 10 mg PO QAM Discontinued aspirin [Aspir-81] 81 mg Tablet,Delayed Release (Dr/Ec) 81 mg PO DAILY Follow up/Referrals: Ernestina Hernandez DO [Primary Care Provider] - Criss Sylvester MD [Physician] - As previously scheduled (Follow up with Dr Sylvester on 03/18/2023 @ 3:30 pm at [facility] office in [place].) Diet/Activity/Treatments Diet: Diet as Tolerated Activity: Weightbearing as tolerated to left leg. Posterior hip precautions. Cold/Heat Therapy: Ice to hip as needed for pain. Skin/Wound/Dressing Care Report to your healthcare provider any signs of infection, such as:: chills, fever, night sweats, unusual drainage and unusual redness Dressing: May shower. Leave Aquacel dressing in place until follow up in office. No bathing or otherwise soaking incision. Call the office if the dressing becomes saturated inside. Visit Report/Discharge Packet Instructions: DI for Hip Replacement, DI for Prescription Opioid Use Stand Alone Forms: Patient Portal/API, Surgery Discharge Discharge Data Primary Care Provider: Ernestina Hernandez Attending Provider: Criss Sylvester
[2023-03-09 08:14] VITALS: BP 133/64; PULSE 66
[2023-03-09] MEDS: carvediloL 3.125 MG TABLET 6.25 MG PO (08:14)
[2023-03-09] MEDS: METFORMIN HCL 500 MG TABLET PO (08:14)
[2023-03-09] MEDS: ATORVASTATIN 20 MG TABLET 40 MG PO (08:14)
[2023-03-09] MEDS: ACETAMINOPHEN 325 MG TABLET 650 MG PO (08:14)
[2023-03-09] MEDS: DOCUSATE 100 MG CAPSULE PO (08:14)
[2023-03-09 08:15] VITALS: BP 133/64; PULSE 66; RESP 19; TEMP 36.7; O2SAT 94
[2023-03-09] MEDS: polyethylene glycoL 3350 17 GM POWD.PACK PO (08:15)
[2023-03-09] MEDS: TAMSULOSIN 0.4 MG CAPSULE PO (08:15)
[2023-03-09] MEDS: ASPIRIN EC 81 MG TABLET PO (08:15)
--- NOTE | 2023-03-09 09:00 | PT.IIE ---
Current Diagnoses Unilateral primary osteoarthritis, left hip (03/08/23) Presence of unspecified artificial hip joint (03/08/23) Surgery Performed Operation Date: 03/08/23 10:45 Actual Procedures p Total Hip Arthroplasty(Left) - Criss Sylvester MD Surgical History (Last Updated 03/01/23 @ 09:15 by Faith Lazaro, RN) History of total right knee replacement (08/03/21) Hx of arthroscopy of right knee (07/05/18) Hx of colonoscopy (05/25/22) Hx of inguinal hernia repair Hx of tonsillectomy Medical History (Last Updated 03/01/23 @ 09:24 by Faith Lazaro RN) Afib (2019) CHF (congestive heart failure) COPD (chronic obstructive pulmonary disease) Cor pulmonale Diabetes History of alcohol abuse HTN (hypertension) Hypercholesteremia CAMILLA (obstructive sleep apnea) Osteoarthritis Thyroid disorder Physical Therapy Inpatient Evaluation/Re-Eval M1 PT/OT-IP Prior Functional Status Start: 03/09/23 11:14 Freq: NEEDED Status: Discharge Protocol: Document 03/09/23 10:10 [facility] (Rec: 03/09/23 11:35 [facility] [id number]) Medical Review Prior Functional Status Communication Independent Mobility and Gait Pt used a SPC but states was limited for distance do to his pain. Activities of Daily Living and IADL's Pt able to do ADL and IADL need but had pain. Social History Household Members none Living Arrangements Mobile home Number of Floors (Floors) One Floor Number of Stairs To Enter/Railing? 3 steps with left rail to enter. Home Environment Standard Height Toilet,Tub/ Shower Home Equipment Four Wheel Walker,Straight Cane,Raised Toilet Seat Without Armrests,Tub Transfer Bench,Hand Held Shower,Long Handled Shoe Horn,Cnc Router Operator,Grab Bars In Shower Additional Social History Comment Pt to stay with his ex-, information above based on her place. M1 PT/OT-IP Prior Functional Status Start: 03/09/23 13:02 Freq: NEEDED Status: Active Protocol: Document 03/09/23 09:00 AB (Rec: 03/09/23 13:15 AB [id number]) Medical Review Prior Functional Status Medical History Reviewed Yes Communication able to make needs known Mobility and Gait pt stated that he is modified independent with all mobilities but has been using a hurrycane for at least 8 months due to his hip pain Activities of Daily Living and IADL's per OT note: Pt able to do ADL and IADL need but had pain. Social History Household Members none Living Arrangements House Number of Floors (Floors) One Floor Number of Stairs To Enter/Railing? pt plans to go to his ex-' s house: ex- will be assisting pt ; home set up info is regarding ex-'s house 3 steps L rail ascending Home Environment Standard Height Toilet,Tub/ Shower Home Equipment Four Wheel Walker,Raised Toilet Seat Without Armrests, Tub Transfer Bench,Hand Held Shower,Grab Bars In Shower Additional Social History Comment pt has a hurrycane M2 PT-IP Current Condition Start: 03/09/23 13:02 Freq: NEEDED Status: Active Protocol: Document 03/09/23 09:00 AB (Rec: 03/09/23 13:15 [email or web address]) Physical Therapy Current Condition Current Condition Evaluation Date 03/09/23 Treatment Diagnosis s/p L CLARIBEL posterior approach; difficulty in walking Onset Date 03/08/23 M3 PT-IP Subjective Start: 03/09/23 13:02 Freq: NEEDED Status: Active Protocol: Document 03/09/23 09:00 AB (Rec: 03/09/23 13:15 [id number]) Subjective Physical Therapy Visit Type Type Initial Evaluation Visit Start Time 09:00 Visit Stop Time 09:50 Total Visit Minutes 50 Number of AREA CLEANER Visits 0 Physical Therapy Visit Comments Patient Comments agreeable to do PT Therapy Pain Assessment Pain When Pain Assessed At Rest Pain Present Pain Present Pain Reported Location Left Hip Intensity 3 Scale Used increases with movement Pain Behaviors Guarding Pain Management Techniques Apply Cold,Distraction, Modification of Treatment,Re- positioning,Timing of Activity with Medications M4 PT-IP Mobility and Gait Start: 03/09/23 13:02 Freq: NEEDED Status: Active Protocol: Document 03/09/23 09:00 AB (Rec: 03/09/23 13:15 [id number]) PT-Bed Mobility Assessment Supine to Sit Supine to Sit Standby Assistance Sit to Supine Sit to Supine Standby Assistance PT-Transfer Assessment Sit to and From Stand Sit to and from Stand Standby Assistance,1 Person Assistance,Use of Upper Extremities Equipment Transfer Assistive Device Gait Belt,Front Wheeled Walker Orthotic/Prosthetic Devices or Brace: No Transfers Transfer Destination Bed,Chair Transfer Technique Stand Step Pivot Transfer Ability Level of Assist Standby Assistance,Use of Upper Extremities Comments Mobility Comments pt sitting on the chair. agreeable to do PT. provided with post-op folder and reviewed contents. educated pt on posterior hip precautions. pt able to recall his precautions. BP: 124/64. no c/o dizziness/ lightheadedness. completed sit to stand from the chair SBA and cues for techniques and safety. able to step transfer to the EOB using FWW SBA. demonstrated sit<>supine SBA. cued for techniques. completed sit to stand form EOB SBA. able to position LE for hip precautions protocols. ambulated towards [facility] stairs ~ 200 ft using 4WW. completed up/down stairs using L rail SBA. ambulated back to his room using 4WW SBA. pt sat back on the his chair. positioned. call light and table placed within reach. pt without further concerns. Gait Assessment Gait Gait Assistance Required: Standby Assistance Distance (Feet) 200 Assistive Devices Assistive Device Gait Belt,Front Wheeled Walker Orthotic/Prosthetic Devices or Brace: No Gait Deviations General Gait Pattern Antalgic,Decreased Stride Length,Decreased Feet Clearance Factors Limiting Gait Function Factors Limiting Gait Function Decreased Activity Tolerance, Decreased Strength,Limited Range of Motion,Pain,Poor Balance Stair Climbing Assessment Evaluation Level of Assist On Stairs Standby Assistance Devices Stair Climbing Assistive Devices Left Railing Technique/Endurance Stair Climbing Direction Ascend and Descend Stair Climbing Technique Step to Step Number of Steps Climbed 3 Query Text: Stair Climbing Set # Repetitions (reps) 1 PT-Balance Assessment Sitting Balance and Reactions Static Sitting Balance Ability Normal Dynamic Sitting Balance Ability Good Standing Balance and Reactions Static Standing Balance Ability Fair Dynamic Standing Balance Ability Fair Device Used FWW M5 PT-IP Objective Assessments Start: 03/09/23 13:02 Freq: NEEDED Status: Active Protocol: Document 03/09/23 09:00 AB (Rec: 03/09/23 13:15 AB [id number]) Orientation Orientation/Cognition Level of Alertness Alert Orientation Name,Place,Situation Language Function Ability No Deficits Noted Safety Awareness Understands Safety Issues Memory Description Short Term Impaired Gross Range of Motion Lower Extremity ROM Assessment Within Functional Limits Strength Lower Extremity Strength Assessment Left Impaired Hip 3+/5 Knee 4-/5 Coordination Assessment Gross Coordination Gross Coordination WNL Sensation Assessment Sensation Gross Sensation WNL Muscle Tone Muscle Tone WNL Yes M6 PT-IP Treatment Start: 03/09/23 13:02 Freq: NEEDED Status: Active Protocol: Document 03/09/23 09:00 AB (Rec: 03/09/23 13:15 AB [id number]) Physical Therapy Treatment Education Education Provided Precautions,Weight Bearing Status,Post-Op Packet,Safety M7 PT-IP Assessment and Plan Start: 03/09/23 13:02 Freq: NEEDED Status: Active Protocol: Document 03/09/23 09:00 AB (Rec: 03/09/23 13:15 AB [id number]) PT Summary Assessment and Plan Potential Rehabilitation Potential Good Status of Condition at Evaluation Stable Summary Impairments Pain,ROM,Strength,Balance, Coordination,Sensation,Tone, Cognition,Bed Mobility, Transfers,Gait,Activity Tolerance Assessment Summary pt is a 63 y/o M s/p L CLARIBEL posterior approach. pt with LLE posterior hip precautions and is WBAT. pt able to recall his precautions and completed all mobilities with SBA. pt plans to go to his ex- 's house and ex- will be able to assist pt. pt may go home when medically stable. pt has outpt PT set up. Goals Bed Mobility Goal Independent Transfer Goal Independent,Four Wheeled Walker Gait Goal Independent,Four Wheel Walker Gait Distance 300 Other Goals up/down 3 steps L rail ascending mod i Days to Meet Goals 5 Frequency of Treatment Frequency Of Treatment Twice a Day Treatment Plan Physical Therapy Treatment Plan Bed Mobility Training,Transfer Training,Gait Training, Therapeutic Exercise,Balance Retraining,Post Op Education, Discharge Planning,Hot or Cold Pack,Neuromuscular Re-ed, Coordination Retraining,Manual Therapy Precautions Posterior Hip Precautions No Hip Flexion > 90 degrees,No Hip Internal Rotation,No Hip Adduction Weight Bearing Status Weight Bearing Status Weight Bear as Tolerated Allowed Weight Bearing Amount (enter % LLE WBAT or #) (%) Recommendations To Nursing Amount of Assist Needed Standby Assistance Discharge Recommendations PT Discharge Recommendations Home with Assistance, Outpatient PT Transportation Needs at Discharge Private Vehicle
[2023-03-09] MEDS: IBUPROFEN 400 MG TABLET PO (10:08)
[2023-03-09] MEDS: OXYCODONE IR 5 MG TABLET PO (10:08)
--- NOTE | 2023-03-09 10:28 | OT.IP.EVAL ---
Current Diagnoses Unilateral primary osteoarthritis, left hip (03/08/23) Presence of unspecified artificial hip joint (03/08/23) Surgery Performed Operation Date: 03/08/23 10:45 Actual Procedures p Total Hip Arthroplasty(Left) - Criss Sylvester MD Past Medical History (Last Updated 03/01/23 @ 09:24 by Faith Lazaro, RN) Afib (2019) CHF (congestive heart failure) COPD (chronic obstructive pulmonary disease) Cor pulmonale Diabetes History of alcohol abuse HTN (hypertension) Hypercholesteremia CAMILLA (obstructive sleep apnea) Osteoarthritis Thyroid disorder Surgical History (Last Updated 03/01/23 @ 09:15 by Faith Lazaro, RN) History of total right knee replacement (08/03/21) Hx of arthroscopy of right knee (07/05/18) Hx of colonoscopy (05/25/22) Hx of inguinal hernia repair Hx of tonsillectomy Occupational Therapy Inpatient Evaluation/Re-Eval M1 PT/OT-IP Prior Functional Status Start: 03/09/23 11:14 Freq: NEEDED Status: Active Protocol: Document 03/09/23 10:10 [facility] (Rec: 03/09/23 11:35 [facility] [id number]) Medical Review Prior Functional Status Communication Independent Mobility and Gait Pt used a SPC but states was limited for distance due to his hip pain. Activities of Daily Living and IADL's Pt able to do ADL and IADL need but had pain. Social History Household Members none Living Arrangements Mobile home Number of Floors (Floors) One Floor Number of Stairs To Enter/Railing? 3 steps with left rail to enter. Home Environment Standard Height Toilet,Tub/ Shower Home Equipment Four Wheel Walker,Straight Cane,Raised Toilet Seat Without Armrests,Tub Transfer Bench,Hand Held Shower,Long Handled Shoe Horn,Drag Out Man,Grab Bars In Shower Additional Social History Comment Pt to stay with his ex-, information above based on her place. M2 OT-IP Current Condition Start: 03/09/23 11:14 Freq: Status: Active Protocol: Document 03/09/23 10:10 [facility] (Rec: 03/09/23 11:35 [facility] [id number]) Occupational Therapy Current Condition Current Condition Evaluation Date 03/09/23 Treatment Diagnosis S/P L CLARIBEL posterior approach Diagnosis Onset Date 03/08/23 Post Operative Precautions Posterior Hip Precautions No Hip Flexion > 90 degrees,No Hip Internal Rotation,No Hip Adduction M3 OT- IP Subjective and Pain Start: 03/09/23 11:14 Freq: Status: Active Protocol: Document 03/09/23 10:10 [facility] (Rec: 03/09/23 11:35 [facility] [id number]) OT- Subjective Occupational Therapy Visit Type Type Initial Evaluation Visit Start Time 10:10 Visit Stop Time 10:28 Total Visit Minutes 18 Occupational Therapy Visit Comments Patient Comments Pt agreed to get dressed. Patient/Caregiver Goals To go home. OT Pain Assessment Pain When Pain Assessed At Rest Pain Present Pain Present Denied Pain M4 OT- IP ADL's Start: 03/09/23 11:14 Freq: Status: Active Protocol: Document 03/09/23 10:10 [facility] (Rec: 03/09/23 11:35 [facility] [id number]) OT [id number] General Evaluation Self-Feeding Ability Independent OT ADL-Grooming General Evaluation Grooming Ability Independent OT ADL-Oral Care General Eval Oral Care Ability Independent OT ADL-Dressing General Eval Upper Body Dressing Ability Independent Lower Body Dressing Ability Maximum Assistance Areas Needing Assistance Socks,Shoes Comments OT Dressing Comments Educated pt on dressing his LLE first and take out last. Able to use the shampoo person to assist to get his underwear and pants over his feet. Pt needing assist for his socks and shoes at this time. Pt states his ex- to assist as needed. OT ADL-Toileting Comments OT Toileting Comments Pt able to stand and wipe when practiced but states he is looking into getting a bidet for home use at this time. OT ADL-Bathing Comments OT Bathing Comments Pt states has a tub bench at home to use. Suggested pt try it with his clothes on first and be sure to follow his hip precautions of no bending more than 90 degrees . M5 OT- IP IADL's Start: 03/09/23 11:14 Freq: Status: Active Protocol: Document 03/09/23 10:10 [facility] (Rec: 03/09/23 11:35 [facility] [id number]) OT-Instrumental Activities of Daily Living Deficits IADL Deficits Identified Deficits Home Safety Awareness Awareness of Need for Assistance at Home Good Awareness Ability to Problem Solve Emergency Able to Problem Solve Situations Medication Management Medication Management No Deficits Identified Money Management Money Management No Deficits Identified Meal Preparation Meal Preparation Comments Pt's ex- to assist. Travel Writer Travel Writer Comments Pt's ex- to assist. M6 OT- IP Functional Cognition Start: 03/09/23 11:14 Freq: Status: Active Protocol: Document 03/09/23 10:10 [facility] (Rec: 03/09/23 11:35 [facility] [id number]) Cognitive Factors Limiting Selfcare Function Cognitive Ability Level of Alertness Alert Patient Orientation Name,Age,Birthday,Month,Date, Year,Day of Week,Place, Situation Attention Span Ability Capable of Focused Attention, Capable of Sustained Attention Ability to Follow Commands Able to Follow Multi-Step Commands Memory Description No Deficits Noted Safety Awareness No Deficits Noted Problem Solving Ability No deficits Noted Executive Function Ability No Deficits Noted Cognitive Comments Cognitive Assessment Comments Pt intact and able to follow all his hip precautions well with good safety and understanding. OT- Vision and Hearing OT- Hearing Assessment OT- Hearing Assessment WFL M7 OT- IP Mobility and Balance Start: 03/09/23 11:14 Freq: Status: Active Protocol: Document 03/09/23 10:10 [facility] (Rec: 03/09/23 11:35 [facility] [id number]) OT-Transfer Assessment Sit to and From Stand Sit to and from Stand Independent Transfers Transfer Ability Independent Technique Transfer Destination Chair Transfer Technique Stand Step Pivot Devices Transfer Assistive Devices Gait Belt,4 Wheeled Walker Comments Mobility Comments Pt is independent in his room with his 4ww. OT- Balance Assessment Sitting Balance and Reactions Static Sitting Balance Ability Normal Dynamic Sitting Balance Ability Normal Standing Balance and Reactions Static Standing Balance Ability Normal Dynamic Standing Balance Ability Good M9 OT- IP Assessment and Plan Start: 03/09/23 11:14 Freq: Status: Active Protocol: Document 03/09/23 10:10 [facility] (Rec: 03/09/23 11:35 [facility] [id number]) OT Summary Assessment and Plan Potential Rehabilitation Potential Excellent Analytic Complexity at Evaluation Low Summary OT Impairments Pain,Functional Mobility, Dressing,Toileting,Bathing, Shower Transfers Progress Towards Goals Progressing Toward Goals Assessment Summary Pt low complexity and main barriers are steps, and will need assist for LB dressing and showering needs from his ex-. Pt able to show and demonstrate good understanding for all his hip precautions for ADL and mobility needs. Pt to go home with assist and have outpt PT. Goals Dressing Goal Independent,Long Handled Shoe Horn,Drag Out Man Toileting Goal Independent Bathing Goal Independent Shower Transfer Goal Independent Days to Meet Goals 5 Frequency of Treatment Frequency Of Treatment Once a Day Treatment Plan OT Treatment Plan ADL Training,Functional Mobility,Patient/Family Education,Discharge Planning Discharge Recommendations OT Discharge Recommendations Home with Assistance, Outpatient PT Home Equipment Needs Pt to get a bidet. Transportation Needs at Discharge Private Vehicle
--- NOTE | 2023-03-09 12:27 | CM.DANOTE ---
Patient is a 63 yo male who was admitted on 03/08/23 for LTHA. Pt has L&I for insurance and his PCP is Ernestina Hernandez. EMR was reviewed. Per Ortho PA, pt tolerated procedure well and pain seems controlled, pt has independently voided, and tolerating diet. Once pt works with PT/OT then stable for d/c to home today. Per PT/OT, recommending safe d/c home with outpt PT. Pt lives in [facility] in a mobile home alone and is active and independent at baseline and had been using a cane recently due to increased hip pain. Pt drives and denies any hx of HH or SNF. Pt has local son and ex- but has a good relationship with her and plans to d/c to her place at discharge for additional assist. Pt does not anticipate any needs at d/c and agreeable with home. SW witnessed pt walking halls with FWW with PT today. Plan: Patient to d/c home today via family POV and outpt f/u and PT. No further SW needs at this time. CHRISTINA Toledo Discharge Planning/Care Management CM Discharge Assessment Start: 03/09/23 12:24 Freq: Status: Active Protocol: Document 03/09/23 12:25 BF (Rec: 03/09/23 12:26 BF [id number]) Discharge Planning Assessment Assigned Curator Of [employer]s CHRISTINA Gerber DPOA/Assigned Designee Name informallyl son Haim Contact Information [phone] Advance Directives? No Advance Directives on File No History Provided By Patient,Medical Record Has Patient been admitted in last 30 No days? Prior Living Arrangements Mobile home Household Members none Type of transporation used prior to Drives own vehicle admit Independent with ADL's Yes Is patient alert and oriented? Yes Caregiver for Another No Community Services used prior to Physical Therapy admission: DME Already Rented / Owned FWW / Walker Patient/Family Preference OP PT Therapy Barriers to Discharge No Discharge Plan Home Transportation Arrangement family to transport at d/c Referrals Initiated None needed Review Status In Process Please Provide Date Initial DC 03/09/23 Assessment Was Performed Next Review Type Continued Stay Review Pre-Anesthesia Assessment Start: 03/01/23 07:32 Freq: Status: Complete Protocol: Document 03/01/23 07:32 CAB (Rec: 03/01/23 09:31 CAB [id number]) Pre-Anesthesia Assessment Preferred Name Piter Patient Information Reviewed Via Phone Assessment Assessment Completed With Patient Diagnostic Results BMP/CMP,CBC,EKG Comment Outside labs/EKG scanned Primary Care Provider None Seen Specialist in Last 12 Months Yes Specialist Seen Equipment Maintenance Superintendent,Orthopedist Primary Language Uruguayan Photostat Operator Required No Height 182.88 cm Weight 125.645 kg Body Mass Index (BMI) 37.5 Hearing Ability Normal Visual Impairment No Limitations Visual Assist None Dentition Type Teeth, Natural Present,Teeth, Missing Barriers to Learning None Other Aids Yes: CPAP Hx Anesthesia Reactions No Hx Family Anesthesia Reaction No Hx Malignant Hyperthermia No Hx Blood Transfusions No Anesthesia Review Requested No Manager Environmental No alcohol intake former Alcohol Intake Frequency Other: ETOH abuse, sober since 2018 Smoking Status Former smoker Tobacco type e-cigarettes how long ago did patient quit smoking Quit smoking 2018, continues to vape Substance Use Type marijuana Comment Edibles to help with sleep Pain Present Pain Reported Musculoskeletal Symptoms Abnormal Gait,Difficulty Walking,Joint Pain History of Falling (Recent or History of No ) Patient is completely paralyzed or No completely immobile Prosthesis or Orthotic Device Cane Mental Status Oriented to own ability Is patient on oxygen? No Does patient have SANTIAGO/SOB No Hx Sleep Apnea Yes CPAP/BIPAP use prescribed and used routinely Will Bring CPAP/BIPAP DOS Yes Currently Taking a Beta Pantera Yes: Carvedilol Hx Chest Pain No Hx SOB No Hx Syncope or Dizziness No Anti-Coagulant Therapy Yes: ASA 81mg-ok to hold 7 days prior per Cardiology Has a Equipment Maintenance Superintendent Yes: Pre-op visit 01/25/[address] Beavesr Cardiac Testing No Hx Pacemaker/ICD No Pacemaker Rep Required? No Cardiac Clearance Received Yes Comment Cardiac records scanned Diet Type At Home Regular Dysphagia No Gastrointestinal Symptoms None Chronic UTI No Urinary Catheter Present No Hx Urinary Self Catheterization No Diabetes Yes HgbA1C 5.7 Date 02/15/23 Hx Drug Resistant Organism No Presence of External or Internal Medical Yes: Right knee, CPAP Devices Have you had any close contact with No someone diagnosed with COVID-19? Received a COVID vaccine? Yes Received all doses? No Marital Status Lives With none Current Living Arrangements Mobile home Number of Floors (Floors) One Floor Support System Other Comment Pt will stay with Ex- who will [facility] Does the Patient Have Assistance After Yes Surgery Patient Discharge Plan Description Return Home Comment Pt advised 1-3 day length of stay per surgeon Feels Safe in Current Environment Yes Been Physically Hurt or Threatened By a No Person in Current Environment Do you have thoughts of harming yourself None or others? Are you currently considering suicide? No Do you have a plan to hurt yourself or No Plan others? Do You Have Any Spiritual Beliefs That No May Affect Your HC Choices? Do You Have Any Cultural Practices That No May Affect Your HC Choices? Comment [place] Who Can We Speak to About Patient's Care Family, friends Identifying Code for Release of Patient Declines to issue Information Health Care Proxy/Next of Kin Primo (son) Health Care Proxy Emergency Contact Name Chery (Ex-) Emergency Contact Advance Directives? No Power of Tape Keller Operator No PAC Instructions Bring CPAP/BIPAP,Diabetes instructions,Durable medical equipment,Medications to take/ avoid,Nasal antibiotic,No ETOH /petroleum product on skin DOS ,NPO,Pre-surgical wash,Sturdy shoes/comfortable clothes,Do not bring valuables and remove jewelry
== END 2023-03-09 11:45 | disposition home or self-care (01) ==
LOC: OR 08:38 → AC 08:39
PROVIDERS: PCP Family Medicine; Referring Provider Orthopaedic Surgery; Visit Provider Orthopaedic Surgery
PROC: 0SRB0JZ Replacement of Left Hip Joint with Synthetic Substitute, Open Approach (ICD-10-PCS; CPT 27130; principal; 2023-03-08 10:45)
DX: M16.12 Unilateral primary osteoarthritis, left hip (principal)
CPT/HCPCS: 27130; 36415; 72170; 73502; 82962; 85014; 85018; 97116; 97161; 97165; 97530; 97535; C1776; C9290; J0171; J0690; J1100; J2250; J2405; J2704